=== PATIENT | female | born 1990 | race Caucasian/White ===

== ENCOUNTER 2017-06-13 13:34 | Emergency (ER) | payer MEDICARE, MEDICAID ==
[~2017-06-13] VITALS: Ht 162.6 cm; Wt 118.0 kg
[~2017-06-13 13:34] MED LIST: CYCL-259 PO; GABA300T3 PO; GABA600T14 PO; LEVO1TAB5 PO; LEVO50TA5 PO; MELA10CA PO; METF500T4 PO; METO-99 PO; NAPR500T PO; OXYC1TAB8 PO; ZIPR80CA2 PO
[2017-06-13 13:40] VITALS: BP 142/67
[2017-06-13] MEDS ORDERED: OXYC1TAB9 PO (14:10)
[2017-06-13] MEDS ORDERED: SITA50TA PO (14:10)
[2017-06-13] MEDS ORDERED: ZIPR40CA2 PO (14:10)
[2017-06-13] MEDS ORDERED: FENT1PAT9 TD (14:10)
== END 2017-06-13 15:31 | disposition home or self-care (01) ==
LOC: ED 15:25
DX: S93.621A Sprain of tarsometatarsal ligament of right foot, initial encounter (principal); I10 Essential (primary) hypertension; E11.9 Type 2 diabetes mellitus without complications; Z88.1 Allergy status to other antibiotic agents; Z88.2 Allergy status to sulfonamides; Z88.8 Allergy status to other drugs, medicaments and biological substances; W18.30XA Fall on same level, unspecified, initial encounter; Y93.89 Activity, other specified; Y92.009 Unspecified place in unspecified non-institutional (private) residence as the place of occurrence of the external cause; Y99.9 Unspecified external cause status
CPT/HCPCS: 29515; 99284

== ENCOUNTER 2017-06-30 21:21 | Emergency (ER) | payer MEDICARE, MEDICAID ==
[~2017-06-30] VITALS: Ht 160 cm; Wt 122.2 kg
[~2017-06-30 21:21] MED LIST changes: +FENT1PAT9 TD; +OXYC1TAB9 PO; +SITA50TA PO; +ZIPR40CA2 PO
[2017-06-30 21:47] LABS: HEMATOCRIT 41.9 % (34.6-47.8); WHITE BLOOD COUNT 6.9 x10^3/uL (3.4-10)
[2017-06-30 22:00] LABS: ASPARTATE AMINO TRANSFERASE 18 U/L (15-37); BLOOD UREA NITROGEN 15 mg/dL (7-18)
[2017-06-30 22:08] LABS: ACETAMINOPHEN < 2 mcg/mL (10-30)
[2017-06-30 22:34] LABS: DAU SCREEN DISCLAIMER
[2017-06-30] MEDS ORDERED: OMNIPAQUE 350 MG/ML, 100ML BOTTLE ONE (23:25)
[2017-07-01] MEDS ORDERED: MORPHINE SULFATE 4 MG/ML, 1ML IVPush PRN
[2017-07-01] MEDS ORDERED: ONDANSETRON 2MG/ML, 2ML IVPush ONE
[2017-07-01] MEDS ORDERED: MORPHINE SULFATE 4 MG/ML, 1ML ONE (00:11)
[2017-07-01] MEDS ORDERED: ONDANSETRON 2MG/ML, 2ML ONE (00:11)
[2017-07-01 00:16] VITALS: BP 137/75
== END 2017-07-01 00:51 | disposition home or self-care (01) ==
LOC: ED 22:05
DX: G43.409 Hemiplegic migraine, not intractable, without status migrainosus (principal); I10 Essential (primary) hypertension; E11.9 Type 2 diabetes mellitus without complications; Z88.0 Allergy status to penicillin; Z88.2 Allergy status to sulfonamides; Z88.1 Allergy status to other antibiotic agents; Z88.8 Allergy status to other drugs, medicaments and biological substances
CPT/HCPCS: 36415; 70450; 70496; 70498; 71010; 80047; 80053; 80307; 80329; 81003; 82962; 83605; 84703; 85025; 85610; 85730; 93005; 96374; 96375; 99291; J2405; Q9967; G0480

== ENCOUNTER 2017-07-09 20:32 | Emergency (ER) | payer MEDICARE, MEDICAID ==
[~2017-07-09] VITALS: Ht 160 cm; Wt 117.0 kg
[2017-07-09 22:21] LABS: HEMATOCRIT 38.5 % (34.6-47.8); HEMOGLOBIN 13.1 g/dL (11.7-16.4); WHITE BLOOD COUNT 6.2 x10^3/uL (3.4-10)
[2017-07-09] MEDS ORDERED: SODIUM CHLORIDE 0.9% 1,000ML IVBOLUS ONE (22:30)
[2017-07-09 22:32] LABS: ASPARTATE AMINO TRANSFERASE 22 U/L (15-37); BLOOD UREA NITROGEN 10 mg/dL (7-18)
[2017-07-09] MEDS ORDERED: ONDANSETRON ODT 4 MG PO ONE (23:00)
[2017-07-09] MEDS ORDERED: MORPHINE SULFATE 4 MG/ML, 1ML IVPush ONE (23:00)
[2017-07-09] MEDS ORDERED: ONDANSETRON 2MG/ML, 2ML ONE (23:23)
[2017-07-09] MEDS ORDERED: MORPHINE SULFATE 4 MG/ML, 1ML ONE (23:23)
[2017-07-10] MEDS ORDERED: ONDANSETRON 2MG/ML, 2ML IVPush ONE
[2017-07-10] MEDS ORDERED: KETOROLAC 30 MG/1 ML IVPush ONE
[2017-07-10] MEDS ORDERED: KETOROLAC 30 MG/1 ML ONE (00:15)
[2017-07-10 00:21] VITALS: BP 137/62
[2017-07-10] MEDS ORDERED: OMEP20TA62 PO (11:47)
[2017-07-10] MEDS ORDERED: FURO40TA6 PO (11:47)
[2017-07-10] MEDS ORDERED: FLUO10CA13 PO (11:47)
[2017-07-10] MEDS ORDERED: IVAB5TAB PO (11:47)
[2017-07-10] MEDS ORDERED: BACL20TA PO (11:47)
[2017-07-10] MEDS ORDERED: PROM25SU34 RC (11:47)
[2017-07-10] MEDS ORDERED: ASPI-496 PO (11:47)
[2017-07-10] MEDS ORDERED: SODI325T PO (11:47)
== END 2017-07-10 00:52 | disposition home or self-care (01) ==
LOC: ED 23:49
DX: G43.419 Hemiplegic migraine, intractable, without status migrainosus (principal); I10 Essential (primary) hypertension; E11.9 Type 2 diabetes mellitus without complications
CPT/HCPCS: 36415; 70450; 80053; 84703; 85025; 93005; 96361; 96374; 96375; 99285; J1885; J2405; J7030

== ENCOUNTER 2017-07-10 11:23 | Emergency (ER) | payer MEDICARE, MEDICAID ==
[~2017-07-10] VITALS: Ht 160 cm; Wt 80.0 kg
[2017-07-10] MEDS ORDERED: SODI325T PO (11:47)
[2017-07-10] MEDS ORDERED: IVAB5TAB PO (11:47)
[2017-07-10] MEDS ORDERED: OMEP20TA62 PO (11:47)
[2017-07-10] MEDS ORDERED: FURO40TA6 PO (11:47)
[2017-07-10] MEDS ORDERED: PROM25SU34 RC (11:47)
[2017-07-10] MEDS ORDERED: FLUO10CA13 PO (11:47)
[2017-07-10] MEDS ORDERED: BACL20TA PO (11:47)
[2017-07-10] MEDS ORDERED: ASPI-496 PO (11:47)
[2017-07-10] MEDS ORDERED: DIPHENHYDRAMINE 50 MG/ML, 1ML IVPush ONE (12:00)
[2017-07-10] MEDS ORDERED: SODIUM CHLORIDE 0.9% 1,000ML IVBOLUS ONE (12:00)
[2017-07-10] MEDS ORDERED: PROCHLORPERAZINE 5 MG/ML, 2ML IVPush ONE (12:00)
[2017-07-10] MEDS ORDERED: SODIUM CHLORIDE FLUSH 10ML SYR IVF ONE (12:00)
[2017-07-10] MEDS ORDERED: PROCHLORPERAZINE 5 MG/ML, 2ML ONE (12:32)
[2017-07-10] MEDS ORDERED: DIPHENHYDRAMINE 50 MG/ML, 1ML ONE (12:32)
[2017-07-10] MEDS ORDERED: KETOROLAC 30 MG/1 ML IVPush ONE (13:00)
[2017-07-10] MEDS ORDERED: KETOROLAC 30 MG/1 ML ONE (13:28)
[2017-07-10 14:20] VITALS: BP 123/69
== END 2017-07-10 15:00 | disposition home or self-care (01) ==
LOC: ED 13:07
DX: G43.019 Migraine without aura, intractable, without status migrainosus (principal); I10 Essential (primary) hypertension; E11.9 Type 2 diabetes mellitus without complications
CPT/HCPCS: 96361; 96374; 96375; 99285; J0780; J1200; J1885; J7030

== ENCOUNTER 2017-07-18 17:55 | Inpatient (IN) | payer MEDICARE, MEDICAID ==
[~2017-07-18] VITALS: Ht 160 cm; Wt 123.0 kg
[~2017-07-18 17:55] MED LIST changes: +ASPI-496 PO; +BACL20TA PO; +FLUO10CA13 PO; +FURO40TA6 PO; +IVAB5TAB PO; +OMEP20TA62 PO; +PROM25SU34 RC; +SODI325T PO
[2017-07-18] MEDS ORDERED: DICL100G19 EXT (18:42)
[2017-07-18] MEDS ORDERED: SUMA20SP2 NAS (18:44)
[2017-07-18] MEDS ORDERED: MORPHINE SULFATE 4 MG/ML, 1ML IVPush PRN (19:00)
[2017-07-18] MEDS ORDERED: SODIUM CHLORIDE FLUSH 10ML SYR IVF ONE (19:00)
[2017-07-18] MEDS ORDERED: SODIUM CHLORIDE 0.9% 1,000ML IVBOLUS ONE (19:00)
[2017-07-18 19:13] LABS: HEMATOCRIT 39.3 % (34.6-47.8); HEMOGLOBIN 13.3 g/dL (11.7-16.4); WHITE BLOOD COUNT 7.6 x10^3/uL (3.4-10)
[2017-07-18 19:23] LABS: BLOOD UREA NITROGEN 15 mg/dL (7-18)
[2017-07-18] MEDS ORDERED: MORPHINE SULFATE 4 MG/ML, 1ML ONE (20:22)
[2017-07-18] MEDS ORDERED: BISACODYL 10 MG SUPP PR PRN (23:00)
[2017-07-18] MEDS ORDERED: DOCUSATE 100 MG CAPSULE PO PRN (23:00)
[2017-07-18] MEDS ORDERED: DEXTROSE 50%, 50ML SYRINGE IVPush PRN (23:00)
[2017-07-18] MEDS ORDERED: POLYETHYLENE GLYCOL 17 GM PACKET PO PRN (23:00)
[2017-07-18] MEDS ORDERED: FENTANYL 25 MCG PATCH TD SCH (23:00)
[2017-07-18] MEDS ORDERED: ACETAMINOPHEN 325 MG TABLET PO PRN (23:00)
[2017-07-18] MEDS ORDERED: methylPREDNISolone SOD SUCC 125 MG/2 ML IVPush SCH (23:00)
[2017-07-18] MEDS ORDERED: DEXTROSE 4 GM TAB.CHEW PO PRN (23:00)
[2017-07-18] MEDS ORDERED: GLUCAGON 1 MG IM PRN (23:00)
[2017-07-18] MEDS ORDERED: FENTANYL REMOVE PATCH NOTE XX SCH (23:00)
[2017-07-18] MEDS: ENOXAPARIN 40 MG/0.4 ML SQ SCH (23:17)
[2017-07-18 23:44] VITALS: BP 108/70
[2017-07-18] MEDS: OXYcodone/APAP 10/325MG TABLET PO PRN (23:49)
[2017-07-19] MEDS: methylPREDNISolone SOD SUCC 125 MG/2 ML IVPush SCH ×5 (02:27→22:31)
[2017-07-19] MEDS ORDERED: DICL100G19 TP (02:47)
[2017-07-19] MEDS ORDERED: NEOM10DR37 OTIC (02:51)
[2017-07-19 02:57] VITALS: BP 114/75
[2017-07-19 04:51] LABS: HEMATOCRIT 40.6 % (34.6-47.8); HEMOGLOBIN 13.8 g/dL (11.7-16.4); WHITE BLOOD COUNT 5.8 x10^3/uL (3.4-10)
[2017-07-19 04:55] LABS: BLOOD UREA NITROGEN 12 mg/dL (7-18)
[2017-07-19 05:08] LABS: ASPARTATE AMINO TRANSFERASE 16 U/L (15-37)
[2017-07-19] MEDS: OXYcodone/APAP 10/325MG TABLET PO PRN ×3 (06:25→18:12)
[2017-07-19 06:41] VITALS: BP 111/70
[2017-07-19] MEDS ORDERED: SODIUM CHLORIDE FLUSH 10ML SYR IVF SCH (09:00)
[2017-07-19] MEDS: IVABRADINE HCL 5 MG HOMEMEDPO SCH (09:00)
[2017-07-19] MEDS: ASPIRIN 81 MG TABLET EC PO SCH (09:26)
[2017-07-19] MEDS: INSULIN ASPART 100 UNITS/ML, PEN SQ-INSULIN SCH ×4 (09:26→22:32)
[2017-07-19] MEDS: ZIPRASIDONE 40MG CAPSULE PO SCH ×2 (09:27→22:21)
[2017-07-19] MEDS: BACLOFEN 10 MG TABLET PO SCH ×2 (09:27→22:20)
[2017-07-19] MEDS: GABAPENTIN 300 MG CAPSULE PO SCH ×3 (09:27→22:20)
[2017-07-19] MEDS: FLUOXETINE 10 MG CAP PO SCH (09:27)
[2017-07-19] MEDS: SITAGLIPTIN 50MG TABLET PO SCH (09:27)
[2017-07-19] MEDS: OMEPRAZOLE 20 MG CAPSULE.DR PO SCH ×2 (09:28→22:20)
[2017-07-19] MEDS: SODIUM BICARBONATE 650 MG TABLET PO SCH ×3 (09:28→22:20)
[2017-07-19] MEDS: DICLOFENAC TP PRN ×2 (11:34→18:13)
[2017-07-19] MEDS: PROMETHAZINE 25 MG SUPP PR PRN (12:31)
[2017-07-19 13:17] VITALS: BP 114/67
[2017-07-19] MEDS: NEO/POLY/HC EAR SUSP 10ML EACH EAR SCH ×2 (15:43→22:19)
[2017-07-19] MEDS ORDERED: GLUCAGON 1 MG IM PRN (20:00)
[2017-07-19] MEDS ORDERED: BISACODYL 10 MG SUPP PR PRN (20:00)
[2017-07-19] MEDS ORDERED: POLYETHYLENE GLYCOL 17 GM PACKET PO PRN (20:00)
[2017-07-19] MEDS ORDERED: ACETAMINOPHEN 325 MG TABLET PO PRN (20:00)
[2017-07-19] MEDS ORDERED: DOCUSATE 100 MG CAPSULE PO PRN (20:00)
[2017-07-19] MEDS ORDERED: DEXTROSE 4 GM TAB.CHEW PO PRN (20:00)
[2017-07-19] MEDS: SODIUM CHLORIDE FLUSH 10ML SYR IVF SCH (21:00)
[2017-07-19 22:17] VITALS: BP 106/49
[2017-07-19] MEDS: MELATONIN 5 MG TABLET PO SCH (22:20)
[2017-07-19] MEDS: ENOXAPARIN 40 MG/0.4 ML SQ SCH (22:21)
[2017-07-20] MEDS: OXYcodone/APAP 10/325MG TABLET PO PRN ×4 (00:50→21:53)
[2017-07-20 00:54] VITALS: BP 105/49
[2017-07-20] MEDS: DICLOFENAC TP PRN ×3 (03:10→22:07)
[2017-07-20] MEDS: PROMETHAZINE 25 MG SUPP PR PRN (03:10)
[2017-07-20] MEDS: methylPREDNISolone SOD SUCC 125 MG/2 ML IVPush SCH ×4 (05:46→23:15)
[2017-07-20] MEDS: SODIUM CHLORIDE FLUSH 10ML SYR IVF SCH ×2 (08:04→21:00)
[2017-07-20] MEDS: INSULIN ASPART 100 UNITS/ML, PEN SQ-INSULIN SCH ×4 (08:04→22:07)
[2017-07-20] MEDS: NEO/POLY/HC EAR SUSP 10ML EACH EAR SCH ×3 (08:04→21:55)
[2017-07-20] MEDS: IVABRADINE HCL 5 MG HOMEMEDPO SCH (08:04)
[2017-07-20] MEDS: ASPIRIN 81 MG TABLET EC PO SCH (08:05)
[2017-07-20] MEDS: ZIPRASIDONE 40MG CAPSULE PO SCH ×2 (08:05→21:54)
[2017-07-20] MEDS: FLUOXETINE 10 MG CAP PO SCH (08:05)
[2017-07-20] MEDS: GABAPENTIN 300 MG CAPSULE PO SCH ×3 (08:06→21:54)
[2017-07-20] MEDS: BACLOFEN 10 MG TABLET PO SCH ×2 (08:06→21:53)
[2017-07-20] MEDS: OMEPRAZOLE 20 MG CAPSULE.DR PO SCH ×2 (08:06→21:53)
[2017-07-20] MEDS: SITAGLIPTIN 50MG TABLET PO SCH (08:06)
[2017-07-20] MEDS: SODIUM BICARBONATE 650 MG TABLET PO SCH ×3 (08:06→21:54)
[2017-07-20 08:10] VITALS: BP 105/67
[2017-07-20 13:52] VITALS: BP 108/65
[2017-07-20 19:42] VITALS: BP 117/66
[2017-07-20] MEDS: MELATONIN 5 MG TABLET PO SCH (21:53)
[2017-07-20] MEDS ORDERED: IVABRADINE HCL 5 MG HOMEMEDPO SCH (21:57)
[2017-07-20] MEDS: ENOXAPARIN 40 MG/0.4 ML SQ SCH (23:15)
[2017-07-21 02:00] VITALS: BP 123/72
[2017-07-21] MEDS: OXYcodone/APAP 10/325MG TABLET PO PRN (03:36)
[2017-07-21] MEDS: DICLOFENAC TP PRN (03:37)
[2017-07-21] MEDS: methylPREDNISolone SOD SUCC 125 MG/2 ML IVPush SCH (06:01)
[2017-07-21 07:19] VITALS: BP 122/77
[2017-07-21] MEDS: INSULIN ASPART 100 UNITS/ML, PEN SQ-INSULIN SCH (07:33)
[2017-07-21] MEDS: ASPIRIN 81 MG TABLET EC PO SCH (08:44)
[2017-07-21] MEDS: SODIUM CHLORIDE FLUSH 10ML SYR IVF SCH (08:44)
[2017-07-21] MEDS: NEO/POLY/HC EAR SUSP 10ML EACH EAR SCH (08:44)
[2017-07-21] MEDS: GABAPENTIN 300 MG CAPSULE PO SCH (08:45)
[2017-07-21] MEDS: BACLOFEN 10 MG TABLET PO SCH (08:45)
[2017-07-21] MEDS: FLUOXETINE 10 MG CAP PO SCH (08:45)
[2017-07-21] MEDS: ZIPRASIDONE 40MG CAPSULE PO SCH (08:45)
[2017-07-21] MEDS: SITAGLIPTIN 50MG TABLET PO SCH (08:45)
[2017-07-21] MEDS: OMEPRAZOLE 20 MG CAPSULE.DR PO SCH (08:45)
[2017-07-21] MEDS: SODIUM BICARBONATE 650 MG TABLET PO SCH (08:46)
[2017-07-21 08:54] VITALS: BP 128/83
[2017-07-21] MEDS ORDERED: IVABRADINE HCL 5 MG HOMEMEDPO SCH (09:00)
[2017-07-21] MEDS ORDERED: PRED10TA PO (09:48)
== END 2017-07-21 10:03 | disposition home or self-care (01) | DRG 123 ==
LOC: ED 19:11 → EDIP 19:40 → 4NOR 21:23 → DCLOUNGE 07-21 09:25
PROVIDERS: ADMIT Internal Medicine; ATTEND Internal Medicine
DX: H46.9 Unspecified optic neuritis (principal); E11.40 Type 2 diabetes mellitus with diabetic neuropathy, unspecified; E11.65 Type 2 diabetes mellitus with hyperglycemia; E66.01 Morbid (severe) obesity due to excess calories; F11.20 Opioid dependence, uncomplicated; H02.843 Edema of right eye, unspecified eyelid; H54.61 Unqualified visual loss, right eye, normal vision left eye; H57.8 Other specified disorders of eye and adnexa; I10 Essential (primary) hypertension; G89.29 Other chronic pain; G47.00 Insomnia, unspecified; F99 Mental disorder, not otherwise specified; M35.9 Systemic involvement of connective tissue, unspecified; G35 Multiple sclerosis; G43.409 Hemiplegic migraine, not intractable, without status migrainosus
CPT/HCPCS: 36415; 80048; 80053; 82040; 82962; 84443; 85025; 86480; 96365; 96375; J1650; J1815; J2930; J7030

== ENCOUNTER 2017-09-24 20:44 | Emergency (ER) | payer MEDICARE, MEDICAID ==
[~2017-09-24] VITALS: Ht 165.1 cm; Wt 125.0 kg
[~2017-09-24 20:44] MED LIST changes: +DICL100G19 EXT; +DICL100G19 TP; +NEOM10DR37 OTIC; +PRED10TA PO; +SUMA20SP2 NAS
[2017-09-24] MEDS ORDERED: ALBU1.25 NEB (21:13)
[2017-09-24] MEDS ORDERED: LACT10SO28 PO (21:13)
[2017-09-24] MEDS ORDERED: NITR0.4T28 SL (21:13)
[2017-09-24] MEDS ORDERED: MEDICAL MARJUANA INH (21:13)
[2017-09-24] MEDS ORDERED: NITR100C56 PO (21:13)
[2017-09-24] MEDS ORDERED: SODIUM CHLORIDE 0.9% 1,000ML IVBOLUS ONE (21:30)
[2017-09-24 21:51] LABS: HEMATOCRIT 41.4 % (34.6-47.8); HEMOGLOBIN 14.1 g/dL (11.7-16.4); WHITE BLOOD COUNT 7.1 x10^3/uL (3.4-10)
[2017-09-24 22:02] LABS: ASPARTATE AMINO TRANSFERASE 18 U/L (15-37); BLOOD UREA NITROGEN 11 mg/dL (7-18)
[2017-09-24 22:13] LABS: HCG UR LOT HCG7030192
[2017-09-24 22:24] LABS: HCG UR OBC PASS
[2017-09-24 23:56] VITALS: BP 127/71
== END 2017-09-25 00:38 | disposition home or self-care (01) ==
LOC: ED 23:22
DX: R53.1 Weakness (principal); E11.9 Type 2 diabetes mellitus without complications; I10 Essential (primary) hypertension; Z88.2 Allergy status to sulfonamides; Z88.8 Allergy status to other drugs, medicaments and biological substances; Z88.1 Allergy status to other antibiotic agents
CPT/HCPCS: 36415; 71010; 80053; 81001; 81025; 84443; 85025; 87086; 99285; J7512

== ENCOUNTER 2017-10-06 17:04 | Emergency (ER) | payer MEDICARE, MEDICAID ==
[~2017-10-06] VITALS: Ht 165.1 cm; Wt 126.0 kg
[~2017-10-06 17:04] MED LIST changes: +ALBU1.25 NEB; +LACT10SO28 PO; +MEDICAL MARJUANA INH; +NITR0.4T28 SL; +NITR100C56 PO
[2017-10-06] MEDS ORDERED: SUMA20SP2 INH (17:58)
[2017-10-06] MEDS ORDERED: FLUT1DIS5 IH (17:58)
[2017-10-06] MEDS ORDERED: MIRA25TA PO (17:58)
[2017-10-06] MEDS ORDERED: LEVO75TA5 PO (17:58)
[2017-10-06] MEDS ORDERED: LORA10TA3 PO (17:58)
[2017-10-06] MEDS ORDERED: CHLO118L PO (17:58)
[2017-10-06] MEDS ORDERED: SITA100T PO (17:58)
[2017-10-06] MEDS ORDERED: GABA600T14 PO (17:58)
[2017-10-06] MEDS ORDERED: ACID1TAB3 PO (17:58)
[2017-10-06] MEDS ORDERED: FURO-92 PO (17:58)
[2017-10-06] MEDS ORDERED: ONDA4TAB10 PO (17:58)
[2017-10-06] MEDS ORDERED: TRAZ50TA18 PO (17:58)
[2017-10-06] MEDS ORDERED: SODIUM CHLORIDE 0.9% 1,000ML IVBOLUS ONE (18:30)
[2017-10-06] MEDS ORDERED: SODIUM CHLORIDE FLUSH 10ML SYR IVF ONE (18:30)
[2017-10-06] MEDS ORDERED: ACETAMINOPHEN 325 MG TABLET PO ONE (18:30)
[2017-10-06] MEDS ORDERED: CEFTRIAXONE PMX 2GM/50ML 50 ML IV ONE (18:30)
[2017-10-06 18:34] LABS: HEMATOCRIT 42.1 % (34.6-47.8); HEMOGLOBIN 14.3 g/dL (11.7-16.4); WHITE BLOOD COUNT 9.4 x10^3/uL (3.4-10)
[2017-10-06 18:45] LABS: ASPARTATE AMINO TRANSFERASE 21 U/L (15-37); BLOOD UREA NITROGEN 11 mg/dL (7-18)
[2017-10-06] MEDS ORDERED: ACETAMINOPHEN 325 MG TABLET ONE (19:06)
[2017-10-06] MEDS ORDERED: CEFTRIAXONE PMX 1GM/50ML 50 ML ONE (19:06)
[2017-10-06] MEDS ORDERED: CEFTRIAXONE PMX 2GM/50ML 50 ML ONE (19:21)
[2017-10-06 20:02] VITALS: BP 146/76
== END 2017-10-06 20:36 | disposition home or self-care (01) ==
LOC: ED 17:40
DX: L03.313 Cellulitis of chest wall (principal); G43.909 Migraine, unspecified, not intractable, without status migrainosus; E11.9 Type 2 diabetes mellitus without complications; I10 Essential (primary) hypertension; J45.909 Unspecified asthma, uncomplicated; F12.10 Cannabis abuse, uncomplicated
CPT/HCPCS: 36415; 71010; 80053; 81001; 83605; 84145; 85025; 87040; 87086; 93005; 96365; 96366; 99285; J0696; J7030

== ENCOUNTER 2017-10-19 21:24 | Emergency (ER) | payer MEDICARE, MEDICAID ==
[~2017-10-19] VITALS: Ht 172.7 cm; Wt 102.0 kg
[~2017-10-19 21:24] MED LIST changes: +ACID1TAB3 PO; +CHLO118L PO; +FLUT1DIS5 IH; +FURO-92 PO; +LEVO75TA5 PO; +LORA10TA3 PO; +MIRA25TA PO; +ONDA4TAB10 PO; +SITA100T PO; +SUMA20SP2 INH; +TRAZ50TA18 PO
[2017-10-19 22:47] LABS: HEMATOCRIT 41.2 % (34.6-47.8); WHITE BLOOD COUNT 7.4 x10^3/uL (3.4-10)
[2017-10-19 22:59] LABS: BLOOD UREA NITROGEN 10 mg/dL (7-18)
[2017-10-20 00:04] VITALS: BP 133/84
== END 2017-10-20 00:07 | disposition home or self-care (01) ==
LOC: ED 23:14
DX: S80.02XA Contusion of left knee, initial encounter (principal); S09.90XA Unspecified injury of head, initial encounter; R55 Syncope and collapse; E11.9 Type 2 diabetes mellitus without complications; X58.XXXA Exposure to other specified factors, initial encounter; Y93.89 Activity, other specified; Y92.89 Other specified places as the place of occurrence of the external cause; Y99.9 Unspecified external cause status
CPT/HCPCS: 36415; 70450; 71010; 72125; 80048; 82040; 84703; 85025; 93005; 99285

== ENCOUNTER 2017-11-03 17:55 | Emergency (ER) | payer MEDICARE, MEDICAID ==
[~2017-11-03] VITALS: Ht 165.1 cm; Wt 125.5 kg
[~2017-11-03 17:55] MED LIST changes: +NAPR-856 PO; -NAPR500T PO
[2017-11-03] MEDS ORDERED: SODIUM CHLORIDE FLUSH 10ML SYR IVF ONE (18:30)
[2017-11-03] MEDS ORDERED: SODIUM CHLORIDE 0.9% 1,000ML IVBOLUS ONE (18:30)
[2017-11-03 18:45] LABS: BASOPHILS # (AUTO) 0.03 x10^3/uL (0-0.1); BASOPHILS % (AUTO) 0 % (0-1); EOSINOPHILS # (AUTO) 0.13 x10^3/uL (0-0.4); EOSINOPHILS % (AUTO) 2 % (1-7); LYMPHOCYTES # (AUTO) 2.19 x10^3/uL (1-3.4); LYMPHOCYTES % (AUTO) 33 % (22-44); MD NO; MEAN CORPUSCULAR HEMOGLOBIN 30.3 pg (27.0-34.8); MEAN CORPUSCULAR HGB CONC 33.8 g/dL (32.4-35.8); MEAN CORPUSCULAR VOLUME 89.8 fL (80-100); MEAN PLATELET VOLUME 9.9 fL (7.4-10.4); MONOCYTES # (AUTO) 0.36 x10^3/uL (0.2-0.8); MONOCYTES % (AUTO) 6 % (2-9); NEUTROPHILS # (AUTO) 3.84 x10^3/uL (1.8-6.8); NEUTROPHILS % (AUTO) 59 % (42-75); PLATELET COUNT 217 x10^3/uL (130-400); RED BLOOD COUNT 4.82 x10^6/uL (3.82-5.3); RED CELL DISTRIBUTION WIDTH 14.2 % (9.6-15.2)
[2017-11-03 18:57] LABS: ALANINE AMINOTRANSFERASE 62 U/L (12-78); ALBUMIN 3.9 g/dL (3.4-5.0); ANION GAP 9 mmol/L (5-15); CALCIUM 9.6 mg/dL (8.5-10.1); CHLORIDE 108 mmol/L (98-107); CREATININE 0.82 mg/dL (0.55-1.02)
[2017-11-03 19:02] LABS: ALKALINE PHOSPHATASE 68 U/L (45-117); BILIRUBIN,TOTAL 0.4 mg/dL (0.2-1.0); TOTAL PROTEIN 7.4 g/dL (6.4-8.2)
[2017-11-03] MEDS ORDERED: ONDANSETRON 2MG/ML, 2ML ONE (19:15)
[2017-11-03] MEDS ORDERED: PROMETHAZINE 25 MG/ML, 1ML ONE (19:15)
[2017-11-03] MEDS ORDERED: PROMETHAZINE 25 MG/ML, 1ML IM ONE (19:30)
[2017-11-03] MEDS ORDERED: ONDANSETRON 2MG/ML, 2ML IVPush ONE (19:30)
[2017-11-03] MEDS ORDERED: ONDANSETRON ODT 4 MG ONE (19:47)
[2017-11-03] MEDS ORDERED: ONDANSETRON ODT 4 MG PO ONE (20:00)
[2017-11-03 20:04] LABS: CULTURE INDICATED? YES; MICROSCOPIC INDICATED
[2017-11-03 20:56] VITALS: BP 135/63
== END 2017-11-03 20:58 | disposition home or self-care (01) ==
LOC: ED 19:08
DX: R10.84 Generalized abdominal pain (principal); R19.7 Diarrhea, unspecified; R11.0 Nausea; E11.9 Type 2 diabetes mellitus without complications; I10 Essential (primary) hypertension; G43.909 Migraine, unspecified, not intractable, without status migrainosus; E66.9 Obesity, unspecified
CPT/HCPCS: 36415; 80053; 81001; 83690; 84703; 85025; 87086; 96372; 99284; J2550; Q0162

== ENCOUNTER 2018-02-04 17:13 | Emergency (ER) | payer MEDICARE, MEDICAID ==
[~2018-02-04] VITALS: Ht 165.1 cm; Wt 123.6 kg
[2018-02-04] MEDS ORDERED: SODIUM CHLORIDE 0.9% 1,000ML IVBOLUS ONE (18:00)
[2018-02-04] MEDS ORDERED: SODIUM CHLORIDE FLUSH 10ML SYR IVF ONE (18:00)
[2018-02-04] MEDS ORDERED: METOCLOPRAMIDE 5 MG/ML, 2ML IVPush ONE (18:00)
[2018-02-04] MEDS ORDERED: METOCLOPRAMIDE 5 MG/ML, 2ML ONE (18:15)
[2018-02-04] MEDS ORDERED: DIPHENHYDRAMINE 50 MG/ML, 1ML ONE (18:15)
[2018-02-04 18:27] LABS: ALANINE AMINOTRANSFERASE 107 U/L (12-78); ALBUMIN 3.7 g/dL (3.4-5.0); ANION GAP 12 mmol/L (5-15); CALCIUM 8.9 mg/dL (8.5-10.1); CHLORIDE 105 mmol/L (98-107); CREATININE 0.85 mg/dL (0.55-1.02)
[2018-02-04 18:30] LABS: BASOPHILS # (AUTO) 0.05 x10^3/uL (0-0.1); BASOPHILS % (AUTO) 1 % (0-1); EOSINOPHILS # (AUTO) 0.17 x10^3/uL (0-0.4); EOSINOPHILS % (AUTO) 3 % (1-7); LYMPHOCYTES # (AUTO) 2.31 x10^3/uL (1-3.4); LYMPHOCYTES % (AUTO) 36 % (22-44); MD NO; MEAN CORPUSCULAR HEMOGLOBIN 30.4 pg (27.0-34.8); MEAN CORPUSCULAR HGB CONC 34.1 g/dL (32.4-35.8); MEAN CORPUSCULAR VOLUME 89.2 fL (80-100); MONOCYTES # (AUTO) 0.48 x10^3/uL (0.2-0.8); MONOCYTES % (AUTO) 7 % (2-9); NEUTROPHILS % (AUTO) 54 % (42-75); PLATELET COUNT 215 x10^3/uL (130-400); RED BLOOD COUNT 4.71 x10^6/uL (3.82-5.3); RED CELL DISTRIBUTION WIDTH 14.1 % (9.6-15.2)
[2018-02-04 18:31] LABS: MICROSCOPIC INDICATED
[2018-02-04 18:32] LABS: ALKALINE PHOSPHATASE 72 U/L (45-117); BILIRUBIN,TOTAL 0.4 mg/dL (0.2-1.0)
[2018-02-04 18:32] LABS: CULTURE INDICATED? YES
[2018-02-04] MEDS ORDERED: DIPHENHYDRAMINE 50 MG/ML, 1ML IVPush ONE (19:30)
[2018-02-04 19:31] VITALS: BP 125/59
== END 2018-02-04 20:17 | disposition home or self-care (01) ==
LOC: ED 20:11
DX: R10.84 Generalized abdominal pain (principal); R11.2 Nausea with vomiting, unspecified; R19.7 Diarrhea, unspecified; E11.9 Type 2 diabetes mellitus without complications; I10 Essential (primary) hypertension; G43.909 Migraine, unspecified, not intractable, without status migrainosus; Z88.1 Allergy status to other antibiotic agents; Z88.2 Allergy status to sulfonamides; Z88.8 Allergy status to other drugs, medicaments and biological substances; Z88.5 Allergy status to narcotic agent
CPT/HCPCS: 36415; 80053; 81001; 83690; 84703; 85025; 86704; 86706; 86708; 86803; 87086; 87340; 93005; 96361; 96374; 96375; 99285; J1200; J2765; J7030

== ENCOUNTER 2018-02-17 14:00 | Emergency (ER) | payer MEDICARE, MEDICAID ==
[~2018-02-17] VITALS: Ht 165.1 cm; Wt 78.0 kg
[2018-02-17] MEDS ORDERED: KETOROLAC 30 MG/1 ML ONE (14:44)
[2018-02-17] MEDS ORDERED: KETOROLAC 30 MG/1 ML IM ONE (15:00)
[2018-02-17 15:04] LABS: BASOPHILS # (AUTO) 0.04 x10^3/uL (0-0.1); BASOPHILS % (AUTO) 1 % (0-1); EOSINOPHILS # (AUTO) 0.17 x10^3/uL (0-0.4); EOSINOPHILS % (AUTO) 3 % (1-7); LYMPHOCYTES # (AUTO) 1.95 x10^3/uL (1-3.4); LYMPHOCYTES % (AUTO) 28 % (22-44); MD NO; MEAN CORPUSCULAR HEMOGLOBIN 29.8 pg (27.0-34.8); MEAN CORPUSCULAR HGB CONC 33.7 g/dL (32.4-35.8); MEAN CORPUSCULAR VOLUME 88.7 fL (80-100); MEAN PLATELET VOLUME 10.4 fL (7.4-10.4); MONOCYTES # (AUTO) 0.43 x10^3/uL (0.2-0.8); MONOCYTES % (AUTO) 6 % (2-9); NEUTROPHILS # (AUTO) 4.39 x10^3/uL (1.8-6.8); NEUTROPHILS % (AUTO) 63 % (42-75); PLATELET COUNT 192 x10^3/uL (130-400); RED BLOOD COUNT 4.95 x10^6/uL (3.82-5.3); RED CELL DISTRIBUTION WIDTH 13.8 % (9.6-15.2)
[2018-02-17 15:06] LABS: ANION GAP 11 mmol/L (5-15); CALCIUM 9.6 mg/dL (8.5-10.1); CHLORIDE 103 mmol/L (98-107)
[2018-02-17] MEDS ORDERED: TRAZ100T15 PO (15:10)
[2018-02-17] MEDS ORDERED: ALBU90AE INH (15:10)
[2018-02-17] MEDS ORDERED: victoza PO (15:10)
[2018-02-17] MEDS ORDERED: FURO-92 PO (15:10)
[2018-02-17] MEDS ORDERED: BUSP5TAB2 PO (15:10)
[2018-02-17 15:11] LABS: CREATININE 0.84 mg/dL (0.55-1.02); TROPONIN I < 0.015 ng/mL (0.000-0.045)
[2018-02-17 15:45] VITALS: BP 116/65
== END 2018-02-17 16:08 | disposition home or self-care (01) ==
LOC: ED 15:00
DX: R07.89 Other chest pain (principal); E11.9 Type 2 diabetes mellitus without complications; I10 Essential (primary) hypertension; I48.91 Unspecified atrial fibrillation; Z79.82 Long term (current) use of aspirin; G43.909 Migraine, unspecified, not intractable, without status migrainosus
CPT/HCPCS: 36415; 71045; 80048; 82040; 84484; 85025; 85379; 93005; 96372; 99285; J1885

== ENCOUNTER 2018-08-22 14:58 | Emergency (ER) | payer MEDICARE, MEDICAID ==
[~2018-08-22] VITALS: Ht 175.3 cm; Wt 122.7 kg
[~2018-08-22 14:58] MED LIST changes: +ALBU90AE INH; +BUSP5TAB2 PO; +METF500T17 PO; -METF500T4 PO; +OXYC-432 PO; -OXYC1TAB9 PO; +TRAZ-136 PO; +TRAZ-137 PO; -TRAZ50TA18 PO; +victoza PO
[2018-08-22 16:57] VITALS: BP 121/74
== END 2018-08-22 16:59 | disposition home or self-care (01) ==
LOC: ED 16:40
DX: R21 Rash and other nonspecific skin eruption (principal); I48.91 Unspecified atrial fibrillation; E11.9 Type 2 diabetes mellitus without complications; I10 Essential (primary) hypertension; G43.909 Migraine, unspecified, not intractable, without status migrainosus
CPT/HCPCS: 76642; 87070; 87205; 99285

== ENCOUNTER 2018-11-23 08:56 | Emergency (ER) | payer MEDICARE, MEDICAID ==
[~2018-11-23] VITALS: Ht 165.1 cm; Wt 121.6 kg
[~2018-11-23 08:56] MED LIST changes: +LORA-247 PO; -LORA10TA3 PO; -TRAZ-136 PO; +TRAZ50TA66 PO
[2018-11-23 08:57] VITALS: BP 133/92
== END 2018-11-23 09:49 | disposition home or self-care (01) ==
LOC: ED 09:24
DX: S91.301A Unspecified open wound, right foot, initial encounter (principal); I48.91 Unspecified atrial fibrillation; I10 Essential (primary) hypertension; E11.9 Type 2 diabetes mellitus without complications; Z88.1 Allergy status to other antibiotic agents; Z88.2 Allergy status to sulfonamides; Z88.8 Allergy status to other drugs, medicaments and biological substances; W45.0XXA Nail entering through skin, initial encounter; Y93.89 Activity, other specified; Y92.009 Unspecified place in unspecified non-institutional (private) residence as the place of occurrence of the external cause; Y99.8 Other external cause status
CPT/HCPCS: 99283

== ENCOUNTER 2018-12-09 06:35 | Day surgery (SDC) | payer MEDICARE, MEDICAID ==
[~2018-12-09] VITALS: Ht 165.1 cm; Wt 120.2 kg
[2018-12-09 07:37] VITALS: BP 123/84
[2018-12-09] MEDS ORDERED: SODIUM CHLORIDE 0.9% 1,000 ML IV SCH (07:39)
[2018-12-09] MEDS ORDERED: LIDOCAINE-MPF 1%, 5ML ONE (07:51)
[2018-12-09] MEDS ORDERED: OMNIPAQUE 300 MG/ML, 10ML VIAL ONE (09:53)
== END 2018-12-09 13:45 | disposition home or self-care (01) ==
LOC: OUT 06:35
PROVIDERS: ATTEND Physician Assistant Surgical
DX: M54.16 Radiculopathy, lumbar region (principal); I48.91 Unspecified atrial fibrillation; G43.909 Migraine, unspecified, not intractable, without status migrainosus; J45.909 Unspecified asthma, uncomplicated; Z87.01 Personal history of pneumonia (recurrent); Z87.39 Personal history of other diseases of the musculoskeletal system and connective tissue; Z98.890 Other specified postprocedural states; Z90.49 Acquired absence of other specified parts of digestive tract; Z88.1 Allergy status to other antibiotic agents; Z88.5 Allergy status to narcotic agent; Z88.8 Allergy status to other drugs, medicaments and biological substances
CPT/HCPCS: 62284; 72126; 72132; Q9967

== ENCOUNTER 2019-09-24 15:20 | Emergency (ER) | payer MEDICAID, MEDICARE ==
[~2019-09-24] VITALS: Ht 165.1 cm; Wt 126.3 kg
--- NOTE | 2019-09-24 15:45 | NUR ---
THIS IS A 29 YO F BIB [facility] FOR COUGH, WEAKNESS AND HEMOPTYSIS X1 WEEK. PATIENT HAS A POSITIVE HISTORY OF TB. SHE STATES THAT SHE RECEIVES CHEST XRAYS ANNUALLY. RESPIRATIONS ARE EVEN AND UNLABORED. AUDIBLE EXPIRATORY WHEEZING NOTED. PATIENT PLACED IN ISOLATION. VITALS OBTAINED. PATIENT RESTING ON GURNEY WITH NO FURTHER NEEDS AT THIS TIME.
[2019-09-24] MEDS ORDERED: SODIUM CHLORIDE FLUSH 10ML SYR IVF ONE (16:00)
--- NOTE | 2019-09-24 16:02 | NUR ---
PATIENT MOVED TO NEGATIVE PRESSURE ROOM. LABS BEING DRAWN.
[2019-09-24] MEDS ORDERED: ONDA4TAB12 PO (16:13)
[2019-09-24] MEDS ORDERED: ZIPR80CA3 PO (16:13)
[2019-09-24] MEDS ORDERED: PREG300C PO (16:13)
[2019-09-24] MEDS ORDERED: METH750T2 PO (16:13)
[2019-09-24] MEDS ORDERED: BUSP10TA PO (16:22)
[2019-09-24] MEDS ORDERED: MYCO500T3 PO (16:22)
[2019-09-24] MEDS ORDERED: DULA1.5P PO (16:22)
[2019-09-24] MEDS ORDERED: LEVO75TA5 PO (16:25)
[2019-09-24] MEDS ORDERED: PRED10TA PO (16:28)
[2019-09-24] MEDS ORDERED: MONT10TA9 PO (16:28)
[2019-09-24] MEDS ORDERED: TIOT18CA INH (16:28)
[2019-09-24] MEDS ORDERED: FOLI0.8T2 PO (16:28)
--- NOTE | 2019-09-24 16:41 | NUR ---
PIV STARTED. PATIENT RESTING ON GURNEY WITH FAMILY AT BEDSIDE. DENIES FURTHER NEEDS AT THIS TIME.
--- NOTE | 2019-09-24 17:07 | NUR ---
PATIENT AMBULATED TO THE BATHROOM WITH A CANE. STEADY GAIT OBSERVED.
[2019-09-24 17:20] LABS: BASOPHILS # (AUTO) 0.05 x10^3/uL (0-0.1); BASOPHILS % (AUTO) 1 % (0-1); EOSINOPHILS # (AUTO) 0.08 x10^3/uL (0-0.4); EOSINOPHILS % (AUTO) 1 % (1-7); LYMPHOCYTES % (AUTO) 23 % (22-44); MD NO; MEAN CORPUSCULAR HGB CONC 33.2 g/dL (32.4-35.8); MEAN CORPUSCULAR VOLUME 93.5 fL (80-100); MEAN PLATELET VOLUME 11.1 fL (7.4-10.4); MONOCYTES # (AUTO) 0.56 x10^3/uL (0.2-0.8); MONOCYTES % (AUTO) 7 % (2-9); NEUTROPHILS # (AUTO) 5.55 x10^3/uL (1.8-6.8); NEUTROPHILS % (AUTO) 68 % (42-75); PLATELET COUNT 211 x10^3/uL (130-400); RED BLOOD COUNT 4.51 x10^6/uL (3.82-5.3); RED CELL DISTRIBUTION WIDTH 13.1 % (9.6-15.2)
[2019-09-24 17:22] LABS: ALBUMIN 4.2 g/dL (3.4-5.0); ANION GAP 9 mmol/L (5-15); CALCIUM 9.4 mg/dL (8.5-10.1); CHLORIDE 105 mmol/L (98-107)
[2019-09-24 17:28] LABS: ALANINE AMINOTRANSFERASE 37 U/L (12-78); ALKALINE PHOSPHATASE 58 U/L (45-117); BILIRUBIN,TOTAL 0.4 mg/dL (0.2-1.0); CREATININE 0.85 mg/dL (0.55-1.02); TOTAL PROTEIN 7.4 g/dL (6.4-8.2)
--- NOTE | 2019-09-24 17:51 | NUR ---
TASK RN: RIGHT FOREARM 18GA (2.5 INCH) PIV PLACED WITH U.S. GOOD BLOOD RETURN AND SEALED PLACEMENT CONFIRMED WITH LONG ACCESS U.S. PRIMARY RN (ORION) MADE AWARE. PER PATIENT REQUEST RIGHT UPPER ARM PIV REMOVED
--- NOTE | 2019-09-24 18:25 | NUR ---
PATIENT TO RADIOLOGY.
[2019-09-24] MEDS ORDERED: ACETAMINOPHEN 500 MG TABLET ONE (18:44)
--- NOTE | 2019-09-24 18:54 | NUR ---
PATIENT MEDICATED PER EMAR
--- NOTE | 2019-09-24 18:58 | NUR ---
Pt report from lilly da silva. This rn to assume care of pt.
[2019-09-24] MEDS ORDERED: ACETAMINOPHEN 500 MG TABLET PO ONE (19:00)
[2019-09-24 19:46] VITALS: BP 136/86
[2019-09-24] MEDS ORDERED: OMNIPAQUE 350 MG/ML, 100ML BOTTLE ONE (23:16)
== END 2019-09-24 20:03 | disposition home or self-care (01) ==
LOC: ED 20:00
DX: R07.89 Other chest pain (principal); I10 Essential (primary) hypertension; E11.9 Type 2 diabetes mellitus without complications; I48.91 Unspecified atrial fibrillation
CPT/HCPCS: 36415; 71275; 80053; 83880; 85025; 93005; 99284; Q9967

== ENCOUNTER 2020-03-10 21:25 | Emergency (ER) | payer MEDICARE, MEDICAID ==
[~2020-03-10] VITALS: Ht 165.1 cm; Wt 110.0 kg
[~2020-03-10 21:25] MED LIST changes: +BUSP10TA PO; +DULA1.5P PO; +FOLI0.8T2 PO; +METH750T2 PO; +MONT10TA11 PO; +MYCO500T3 PO; +ONDA-89 PO; +PREG300C PO; +TIOT18CA INH; -TRAZ-137 PO; +TRAZ-175 PO; +ZIPR80CA3 PO
--- NOTE | 2020-03-10 21:37 | NUR ---
TASK RN: THIS IS A 29Y F BIB EMS FROM HOME FOR SUDDEN ONSET OF BURNING/ STABBING R FLANK PAIN WITH BURNING URINATION. PT STS SHE WAS UP TO RESTROOM AND WHILE URINATING THE BURNING PAIN CAME ON. PT STS SHE HAS NO HX OF KIDNEY STONES OR UTI'S TO HER KNOWLEDGE. PT REPORTS PAIN STILL HERE AND DOES NOT GO AWAY WHEN NOT URINATING. PT CONNECTED TO ALL MONITORING VSS NADN.
--- NOTE | 2020-03-10 21:45 | NUR ---
REPORT RECEIVED FROM PETE ROSENTHAL. PLAN OF CARE DISCUSSED. ERP IN ROOM FOR EVAL
[2020-03-10] MEDS ORDERED: MORPHINE SULFATE 4 MG/ML, 1ML ONE ×2 (21:54→23:36)
[2020-03-10] MEDS ORDERED: DIPHENHYDRAMINE 50 MG/ML, 1ML ONE (21:54)
[2020-03-10] MEDS ORDERED: ONDANSETRON 2MG/ML, 2ML ONE (21:58)
[2020-03-10] MEDS ORDERED: DIPHENHYDRAMINE 50 MG/ML, 1ML IVPush ONE (22:00)
[2020-03-10] MEDS ORDERED: SODIUM CHLORIDE FLUSH 10ML SYR IVF ONE (22:00)
[2020-03-10 22:14] LABS: BASOPHILS # (AUTO) 0.05 x10^3/uL (0-0.1); BASOPHILS % (AUTO) 1 % (0-1); EOSINOPHILS # (AUTO) 0.01 x10^3/uL (0-0.4); EOSINOPHILS % (AUTO) 0 % (1-7); LYMPHOCYTES # (AUTO) 0.85 x10^3/uL (1-3.4); LYMPHOCYTES % (AUTO) 11 % (22-44); MD NO; MEAN CORPUSCULAR HEMOGLOBIN 30.1 pg (27.0-34.8); MEAN CORPUSCULAR HGB CONC 32.8 g/dL (32.4-35.8); MEAN PLATELET VOLUME 9.6 fL (7.4-10.4); MONOCYTES # (AUTO) 0.48 x10^3/uL (0.2-0.8); MONOCYTES % (AUTO) 6 % (2-9); NEUTROPHILS # (AUTO) 6.63 x10^3/uL (1.8-6.8); NEUTROPHILS % (AUTO) 83 % (42-75); PLATELET COUNT 133 x10^3/uL (130-400); RED BLOOD COUNT 4.26 x10^6/uL (3.82-5.3); RED CELL DISTRIBUTION WIDTH 16.3 % (9.6-15.2)
[2020-03-10 22:19] LABS: ALANINE AMINOTRANSFERASE 57 U/L (12-78); ALBUMIN 3.5 g/dL (3.4-5.0); ANION GAP 9 mmol/L (5-15); CALCIUM 8.5 mg/dL (8.5-10.1); CHLORIDE 115 mmol/L (98-107); CREATININE 0.94 mg/dL (0.55-1.02)
[2020-03-10 22:21] LABS: ALKALINE PHOSPHATASE 54 U/L (45-117); BILIRUBIN,TOTAL 0.3 mg/dL (0.2-1.0); TOTAL PROTEIN 6.2 g/dL (6.4-8.2)
[2020-03-10] MEDS: MORPHINE SULFATE 4 MG/ML, 1ML IVPush PRN ×2 (22:32→23:44)
--- NOTE | 2020-03-10 22:42 | NUR ---
PIV PLACED VIA ULTRASOUND BY PETE DE LA ROSA. PATIENT MEDICATED PER EMAR, TOELRATED WELL. STRAIGHT CATH PERFORMED TO OBTAIN STERILE UA
--- NOTE | 2020-03-10 22:51 | NUR ---
PATIENT TO CT
[2020-03-10 22:55] LABS: MICROSCOPIC NOT IND
[2020-03-10 22:58] LABS: CULTURE INDICATED? NO
[2020-03-10] MEDS ORDERED: ONDANSETRON 2MG/ML, 2ML IVPush ONE (23:00)
--- NOTE | 2020-03-10 23:35 | NUR ---
PATIENT C/O "CRACKLY LUNGS" AND REQUESTS A BREATHING TREATMENT, LUNG SOUNDS CLEAR THROUGHOUT, SPO2 AT 98% ON RA, RESPIRATIONS EVEN AND UNLABORED. ERP NOTIFIED.
[2020-03-10 23:40] VITALS: BP 130/69
--- NOTE | 2020-03-10 23:45 | NUR ---
PATIENT GIVEN 2MG OF SECOND DOSE OF MORHINE, DISCUSSED WITH DR. AGOSTO, DUE TO INCREASE OF PAIN AFTER MOVEMENT IN CT.
--- NOTE | 2020-03-10 23:54 | NUR ---
CALL PLACED TO CT DUE TO DELAY IN CT READ, STATES IT IS BEING READ NOW
--- NOTE | 2020-03-11 00:48 | NUR ---
Patient/Caregiver given discharge instructions and they have confirmed that they understand the instructions. Patient discharged in own wheelchair, Call placed to get wheelchair accessible taxi
== END 2020-03-11 00:51 | disposition home or self-care (01) ==
LOC: ED 21:55
DX: R10.9 Unspecified abdominal pain (principal); M54.5 Low back pain; R05 Cough; R30.0 Dysuria; E11.9 Type 2 diabetes mellitus without complications; I10 Essential (primary) hypertension; G43.909 Migraine, unspecified, not intractable, without status migrainosus; I48.91 Unspecified atrial fibrillation
CPT/HCPCS: 36415; 74176; 80053; 81003; 83690; 84703; 85025; 96374; 96375; 96376; 99284; J1200; J2270; J2405

== ENCOUNTER 2020-03-11 18:40 | Emergency (ER) | payer MEDICARE, MEDICAID ==
[~2020-03-11] VITALS: Ht 165.1 cm; Wt 110.0 kg
--- NOTE | 2020-03-11 18:51 | NUR ---
BIB [facility] FOR RLQ PAIN. PT DESCRIBES PAIN AT BLOATING, TIGHT, SHARP. [facility] BS 128. A&OX4. HX ENCEPHALOPATHY AND W/C BOUND. PT LIVES WITH GRANDMOTHER. PURCHASING CLERK [facility]: ZOFRAN 4MG SL. PT CONNECTED TO MONITORING. CALL LIGHT IN REACH. PROVIDER AT BEDSIDE. AWAITING ORDERS.
[2020-03-11] MEDS ORDERED: SODIUM CHLORIDE FLUSH 10ML SYR IVF ONE (19:00)
[2020-03-11 19:18] LABS: BASOPHILS % (AUTO) 0 % (0-1); EOSINOPHILS % (AUTO) 0 % (1-7); LYMPHOCYTES # (AUTO) 0.58 x10^3/uL (1-3.4); LYMPHOCYTES % (AUTO) 8 % (22-44); MD NO; MEAN CORPUSCULAR HEMOGLOBIN 30.4 pg (27.0-34.8); MEAN CORPUSCULAR HGB CONC 32.9 g/dL (32.4-35.8); MEAN CORPUSCULAR VOLUME 92.4 fL (80-100); MEAN PLATELET VOLUME 9.4 fL (7.4-10.4); MONOCYTES # (AUTO) 0.15 x10^3/uL (0.2-0.8); MONOCYTES % (AUTO) 2 % (2-9); NEUTROPHILS # (AUTO) 6.83 x10^3/uL (1.8-6.8); NEUTROPHILS % (AUTO) 90 % (42-75); PLATELET COUNT 150 x10^3/uL (130-400); RED BLOOD COUNT 4.21 x10^6/uL (3.82-5.3); RED CELL DISTRIBUTION WIDTH 15.8 % (9.6-15.2)
[2020-03-11 19:29] LABS: ALANINE AMINOTRANSFERASE 51 U/L (12-78); ALBUMIN 3.4 g/dL (3.4-5.0); ANION GAP 9 mmol/L (5-15); CALCIUM 8.2 mg/dL (8.5-10.1); CHLORIDE 116 mmol/L (98-107)
[2020-03-11 19:34] LABS: ALKALINE PHOSPHATASE 50 U/L (45-117); BILIRUBIN,TOTAL 0.3 mg/dL (0.2-1.0); CREATININE 0.85 mg/dL (0.55-1.02)
--- NOTE | 2020-03-11 19:49 | NUR ---
BREAK RN: PT OFF BEDPAN, CLEANED, SHEET CHANGE. EJ EST BY ALEX FOR CT W CONTRAST. PLAN FOR STRAIGHT CATH PER .
--- NOTE | 2020-03-11 20:00 | NUR ---
URINE OBTAIN VIA STRAIGHT CATH AND TAKEN TO LAB. PT TOLERATED WELL. PT [facility]LY [facility]
[2020-03-11] MEDS ORDERED: KETOROLAC 30 MG/1 ML ONE (20:04)
--- NOTE | 2020-03-11 20:10 | NUR ---
PT GOING TO CT.
[2020-03-11] MEDS ORDERED: KETOROLAC 30 MG/1 ML IVPush ONE (20:30)
[2020-03-11] MEDS ORDERED: PLEASE ENTER HEIGHT AND WEIGHT MC SCH (20:30)
[2020-03-11 20:44] LABS: MICROSCOPIC INDICATED
[2020-03-11 20:53] LABS: CULTURE INDICATED? NO
[2020-03-11 21:04] VITALS: BP 132/81
--- NOTE | 2020-03-11 21:04 | NUR ---
PT BACK FROM CT. PT STATES PAIN IS BETTER AFTER PAIN MEDS. PT RESTING ON [place]. DRE.
--- NOTE | 2020-03-11 21:12 | NUR ---
ALL RESULTS ARE BACK AT THIS TIME. CHART UP FOR RECHECK.
[2020-03-11] MEDS ORDERED: OMNIPAQUE 350 MG/ML, 100ML BOTTLE ONE (22:59)
== END 2020-03-11 22:33 | disposition home or self-care (01) ==
LOC: ED 20:58
DX: S09.90XA Unspecified injury of head, initial encounter (principal); N83.201 Unspecified ovarian cyst, right side; R10.11 Right upper quadrant pain; R94.31 Abnormal electrocardiogram [ECG] [EKG]; I10 Essential (primary) hypertension; E11.9 Type 2 diabetes mellitus without complications; I48.91 Unspecified atrial fibrillation; G89.29 Other chronic pain; G43.909 Migraine, unspecified, not intractable, without status migrainosus; E66.01 Morbid (severe) obesity due to excess calories; Z68.41 Body mass index [BMI] 40.0-44.9, adult; X58.XXXA Exposure to other specified factors, initial encounter; Y93.89 Activity, other specified; Y92.89 Other specified places as the place of occurrence of the external cause; Y99.8 Other external cause status
CPT/HCPCS: 36415; 36556; 70450; 74177; 80053; 81001; 83605; 84703; 85025; 93005; 96374; 99285; J1885; Q9967

== ENCOUNTER 2020-03-30 15:56 | Emergency (ER) | payer MEDICARE, MEDICAID ==
[~2020-03-30] VITALS: Ht 165.1 cm; Wt 120.0 kg
--- NOTE | 2020-03-30 16:04 | NUR ---
BIB [facility] FROM HOME FOR MECHANICAL GLF ON FRIDAY. PAIN TO LEFT HIP AND KNEE, HEMATOMA TO GROIN AREA. PT TOOK TYLENOL 1000MG THIS AM FOR PAIN. PT CONNECTED TO MONITORING. CALL LIGHT IN REACH. AWAITING ORDERS AT THIS TIME.
[2020-03-30] MEDS ORDERED: HYDROcodone/APAP 5/325 TABLET ONE (17:10)
--- NOTE | 2020-03-30 17:14 | NUR ---
HOGSHEAD HAND PER JAN. ALL RESULTS ARE BACK AT THIS TIME. CHART UP FOR RECHECK.
--- NOTE | 2020-03-30 17:24 | NUR ---
PROVIDER REQUESTED RECORDS FROM [facility].
[2020-03-30] MEDS ORDERED: HYDROcodone/APAP 5/325 TABLET PO ONE (17:30)
[2020-03-30] MEDS ORDERED: ONDANSETRON 2MG/ML, 2ML IVPush ONE (17:30)
[2020-03-30] MEDS ORDERED: MORPHINE SULFATE 4 MG/ML, 1ML IVPush ONE (17:30)
--- NOTE | 2020-03-30 17:37 | NUR ---
PROVIDER AT BEDSIDE TO UPDATE PT ON POC.
[2020-03-30 18:01] VITALS: BP 128/72
--- NOTE | 2020-03-30 18:01 | NUR ---
PROVIDER AT BEDSIDE TO UPDATE PT ON POC.
--- NOTE | 2020-03-30 19:28 | NUR ---
Pt assisted to wheel chair with team asssist of Gee Bonilla and this RN and Dennis GOLDMAN assisted with back support.
== END 2020-03-30 19:36 | disposition home or self-care (01) ==
LOC: ED 19:00
DX: S80.02XA Contusion of left knee, initial encounter (principal); M25.552 Pain in left hip; M54.5 Low back pain; R53.1 Weakness; G89.11 Acute pain due to trauma; I10 Essential (primary) hypertension; E11.9 Type 2 diabetes mellitus without complications; I48.91 Unspecified atrial fibrillation; G89.29 Other chronic pain; W06.XXXA Fall from bed, initial encounter; Y93.89 Activity, other specified; Y92.009 Unspecified place in unspecified non-institutional (private) residence as the place of occurrence of the external cause; Y99.8 Other external cause status
CPT/HCPCS: 72110; 99284

== ENCOUNTER 2020-04-08 22:31 | Inpatient (IN) | payer MEDICARE, MEDICAID ==
[~2020-04-08] VITALS: Ht 165.1 cm; Wt 119.9 kg
[2020-04-08] MEDS ORDERED: OXYcodone/APAP 5/325MG TABLET PO ONE (23:00)
[2020-04-08] MEDS ORDERED: OXYcodone/APAP 5/325MG TABLET ONE (23:15)
[2020-04-08 23:16] LABS: BASOPHILS # (AUTO) 0.03 x10^3/uL (0-0.1); BASOPHILS % (AUTO) 0 % (0-1); EOSINOPHILS # (AUTO) 0.01 x10^3/uL (0-0.4); EOSINOPHILS % (AUTO) 0 % (1-7); LYMPHOCYTES % (AUTO) 12 % (22-44); MD NO; MEAN CORPUSCULAR HEMOGLOBIN 30.4 pg (27.0-34.8); MEAN CORPUSCULAR VOLUME 92.2 fL (80-100); MEAN PLATELET VOLUME 9.9 fL (7.4-10.4); MONOCYTES # (AUTO) 0.55 x10^3/uL (0.2-0.8); MONOCYTES % (AUTO) 7 % (2-9); NEUTROPHILS % (AUTO) 81 % (42-75); PLATELET COUNT 157 x10^3/uL (130-400); RED BLOOD COUNT 4.25 x10^6/uL (3.82-5.3); RED CELL DISTRIBUTION WIDTH 14.9 % (9.6-15.2)
[2020-04-08 23:25] LABS: ALANINE AMINOTRANSFERASE 74 U/L (12-78); ALBUMIN 3.7 g/dL (3.4-5.0); ANION GAP 12 mmol/L (5-15); CALCIUM 8.4 mg/dL (8.5-10.1); CHLORIDE 112 mmol/L (98-107); CREATININE 1.04 mg/dL (0.55-1.02)
--- NOTE | 2020-04-08 23:25 | NUR ---
Pt presents with c/o bilat flank pain. States her urine has been darker than normal. Pt has mcmahan in place s/t urinary retention. UA pulled from mcmahan using sterile technique and sent to lab. Pt also c/o CP and SOB for 1 week. Pt also states she slide OOB today and hit her leg on ground. Bruising noted to L knee and L hip. ERP updated to pt's additional complaints and new orders received. Pt medicated per MAR for flank pain.
[2020-04-08 23:27] LABS: ALKALINE PHOSPHATASE 45 U/L (45-117); BILIRUBIN,TOTAL 0.2 mg/dL (0.2-1.0); TOTAL PROTEIN 6.4 g/dL (6.4-8.2)
--- NOTE | 2020-04-08 23:28 | NUR ---
Pt to xray via emma
[2020-04-08] MEDS ORDERED: SODIUM CHLORIDE FLUSH 10ML SYR IVF ONE (23:30)
[2020-04-08 23:33] LABS: MICROSCOPIC INDICATED
--- NOTE | 2020-04-09 | NUR ---
Pt in CT via emma
[2020-04-09 00:03] LABS: TROPONIN I < 0.015 ng/mL (0.000-0.045)
[2020-04-09] MEDS ORDERED: FOSFOMYCIN 3 GM PACKET PO ONE (00:30)
[2020-04-09] MEDS ORDERED: SODIUM CHLORIDE FLUSH 10ML SYR IVF ONE (00:30)
[2020-04-09] MEDS ORDERED: SODIUM CHLORIDE 0.9% 1,000ML IVBOLUS ONE ×2 (00:30)
--- NOTE | 2020-04-09 00:49 | NUR ---
PT PLACED ON 2L NC PER REQUEST. STATES SHE IS FEELING SOB AND WEARS O2 AT HOME PRN. PT NSR ON MONITOR. VSS. IV FLUIDS INFUSING. PT AWARE OF POC.
[2020-04-09] MEDS ORDERED: FOSFOMYCIN 3 GM PACKET ONE (01:34)
[2020-04-09] MEDS ORDERED: TRAZ50TA66 PO (01:43)
[2020-04-09] MEDS ORDERED: INSU100V8 SQ (01:43)
[2020-04-09] MEDS ORDERED: LEVO100T5 PO (01:43)
[2020-04-09] MEDS ORDERED: ZIPR40CA3 PO (01:43)
[2020-04-09] MEDS ORDERED: METH750T87 PO (01:43)
[2020-04-09] MEDS ORDERED: PRED20TA PO (01:43)
[2020-04-09] MEDS ORDERED: FURO80TA77 PO (01:43)
--- NOTE | 2020-04-09 01:51 | NUR ---
Pt medicated per JAN. Blood cultures have been drawn. Confirmed no cross reaction with pt's known med allergies with Faustino in pharmacy. Ok to give per pharmacy. Pt requesting pain meds. Admitting MD, Dr Agustin, aware and will eval pt. Awaiting further orders. Pt to be transferred to floor after MD assess.
--- NOTE | 2020-04-09 02:31 | NUR ---
Admitting MD, Dr Agustin, at bedside to [facility].
--- NOTE | 2020-04-09 02:34 | NUR ---
Pt requesting Dilaudid be removed from her allergy list. Pt states she is not allergic to any pain meds. Allergy removed.
[2020-04-09] MEDS ORDERED: Diamox PO ×2 (02:38)
[2020-04-09] MEDS ORDERED: MORPHINE SULFATE 4 MG/ML, 1ML ONE (02:48)
[2020-04-09] MEDS: morphine SULFATE 10 MG/ML, 1ML IVPush PRN ×4 (02:52→14:42)
--- NOTE | 2020-04-09 02:55 | NUR ---
Pt medicated per verbal order from Dr Agustin for 2 mg Morphine IV. IV fluids infusing. VSS. Pt states she is feeling better after fluids. Updated report called to floor RN. Pt to be transferred to floor.
[2020-04-09] MEDS ORDERED: ACETAMINOPHEN 325 MG TABLET PO PRN (03:00)
[2020-04-09] MEDS ORDERED: hydrALAzine 20 MG/ML, 1ML IVPush PRN (03:00)
[2020-04-09] MEDS ORDERED: ONDANSETRON 2MG/ML, 2ML IVPush PRN (03:00)
[2020-04-09] MEDS ORDERED: PROMETHAZINE 25 MG/ML, 1ML IM PRN (03:00)
[2020-04-09 03:11] VITALS: BP 129/72
[2020-04-09] MEDS ORDERED: CEFTRIAXONE MC SCH (03:30)
[2020-04-09 04:16] LABS: AMPHETAMINE SCREEN, URINE Negative (Negative); BENZODIAZEPINE SCREEN, URINE Negative (Negative); CANNABINOID SCREEN, URINE Negative (Negative); COCAINE SCREEN, URINE Negative (Negative); METHADONE SCREEN, URINE Negative (Negative); OPIATE SCREEN, URINE Positive (Negative)
[2020-04-09 04:17] LABS: BARBITURATE SCREEN, URINE Negative (Negative)
[2020-04-09 05:03] LABS: ANION GAP 10 mmol/L (5-15); BASOPHILS # (AUTO) 0.02 x10^3/uL (0-0.1); BASOPHILS % (AUTO) 0 % (0-1); CALCIUM 7.8 mg/dL (8.5-10.1); CHLORIDE 116 mmol/L (98-107); CREATININE 0.84 mg/dL (0.55-1.02); EOSINOPHILS # (AUTO) 0.04 x10^3/uL (0-0.4); EOSINOPHILS % (AUTO) 1 % (1-7); LYMPHOCYTES # (AUTO) 1.64 x10^3/uL (1-3.4); LYMPHOCYTES % (AUTO) 22 % (22-44); MD NO; MEAN CORPUSCULAR HEMOGLOBIN 30.6 pg (27.0-34.8); MEAN CORPUSCULAR HGB CONC 33.2 g/dL (32.4-35.8); MEAN CORPUSCULAR VOLUME 92.2 fL (80-100); MEAN PLATELET VOLUME 10.3 fL (7.4-10.4); MONOCYTES # (AUTO) 0.51 x10^3/uL (0.2-0.8); MONOCYTES % (AUTO) 7 % (2-9); NEUTROPHILS # (AUTO) 5.26 x10^3/uL (1.8-6.8); NEUTROPHILS % (AUTO) 70 % (42-75); PLATELET COUNT 131 x10^3/uL (130-400); RED BLOOD COUNT 3.86 x10^6/uL (3.82-5.3); RED CELL DISTRIBUTION WIDTH 15.1 % (9.6-15.2)
[2020-04-09] MEDS ORDERED: ONDANSETRON 4 MG TABLET PO PRN (06:30)
[2020-04-09] MEDS: ALBUTEROL/IPRATROPIUM 2.5MG/0.5MG, 3 ML HHN SCH ×4 (07:28→18:49)
[2020-04-09] MEDS: BUDESONIDE 0.5 MG/2 ML INHA INH SCH ×2 (07:28→18:49)
[2020-04-09 07:38] VITALS: BP 101/48
[2020-04-09] MEDS: BUSPIRONE 10 MG TABLET PO SCH ×2 (07:53→21:39)
[2020-04-09] MEDS: CEFTRIAXONE PMX 1GM/50ML 50 ML IV SCH (07:53)
[2020-04-09] MEDS: MONTELUKAST 10 MG TABLET PO SCH (07:53)
[2020-04-09] MEDS: ZIPRASIDONE 40MG CAPSULE PO SCH ×2 (07:53→21:38)
[2020-04-09] MEDS: METHOCARBAMOL 750 MG TABLET PO SCH ×3 (07:54→21:39)
[2020-04-09] MEDS: LEVOTHYROXINE 100 MCG TABLET PO SCH (07:54)
[2020-04-09] MEDS: SENNA/DOCUSATE TABLET PO SCH (07:54)
[2020-04-09] MEDS: PREGABALIN 150 MG CAPSULE PO SCH ×2 (07:54→21:38)
[2020-04-09] MEDS: FLUOXETINE HCL 20 MG CAPSULE PO SCH (07:54)
[2020-04-09] MEDS: SODIUM BICARBONATE 650 MG TABLET PO SCH ×2 (07:54→21:37)
[2020-04-09] MEDS: DIPHENHYDRAMINE 50 MG/ML, 1ML IVPush PRN (07:54)
[2020-04-09] MEDS: ASPIRIN 81 MG TABLET EC PO SCH (07:55)
[2020-04-09] MEDS: FUROSEMIDE 80 MG TABLET PO SCH (07:55)
[2020-04-09] MEDS: IVABRADINE HCL 7.5 MG HOMEMEDPO SCH ×2 (08:05→21:00)
[2020-04-09] MEDS: ENOXAPARIN 40 MG/0.4 ML SQ SCH (14:42)
[2020-04-09 14:53] VITALS: BP 107/65
[2020-04-09 19:30] VITALS: BP 102/56
[2020-04-09] MEDS: INSULIN GLARGINE 100 UNITS/ML, PEN SQ-INSULIN SCH (21:00)
[2020-04-09] MEDS: MELATONIN 5 MG TABLET PO SCH (21:39)
[2020-04-09] MEDS: TRAZODONE 50MG TABLET PO SCH (21:39)
[2020-04-10 00:37] VITALS: BP 119/73
[2020-04-10] MEDS: DIPHENHYDRAMINE 50 MG/ML, 1ML IVPush PRN ×2 (02:38→15:22)
[2020-04-10] MEDS: CEFTRIAXONE PMX 1GM/50ML 50 ML IV SCH (03:16)
[2020-04-10] MEDS: morphine SULFATE 10 MG/ML, 1ML IVPush PRN (04:48)
[2020-04-10] MEDS: ALBUTEROL/IPRATROPIUM 2.5MG/0.5MG, 3 ML HHN SCH ×4 (06:55→18:55)
[2020-04-10] MEDS: BUDESONIDE 0.5 MG/2 ML INHA INH SCH ×2 (06:55→18:55)
[2020-04-10 07:59] VITALS: BP 97/59
[2020-04-10] MEDS: IVABRADINE HCL 7.5 MG HOMEMEDPO SCH ×2 (08:39→21:00)
[2020-04-10] MEDS: METHOCARBAMOL 750 MG TABLET PO SCH ×3 (08:40→21:49)
[2020-04-10] MEDS: MONTELUKAST 10 MG TABLET PO SCH (08:40)
[2020-04-10] MEDS: ASPIRIN 81 MG TABLET EC PO SCH (08:40)
[2020-04-10] MEDS: SENNA/DOCUSATE TABLET PO SCH (08:40)
[2020-04-10] MEDS: BUSPIRONE 10 MG TABLET PO SCH ×2 (08:40→21:50)
[2020-04-10] MEDS: SODIUM BICARBONATE 650 MG TABLET PO SCH ×2 (08:40→21:50)
[2020-04-10] MEDS: LEVOTHYROXINE 100 MCG TABLET PO SCH (08:40)
[2020-04-10] MEDS: FUROSEMIDE 80 MG TABLET PO SCH (08:40)
[2020-04-10] MEDS: ZIPRASIDONE 40MG CAPSULE PO SCH ×2 (08:40→21:50)
[2020-04-10] MEDS: FLUOXETINE HCL 20 MG CAPSULE PO SCH (08:41)
[2020-04-10] MEDS: PREGABALIN 150 MG CAPSULE PO SCH ×2 (08:41→21:49)
[2020-04-10 15:10] VITALS: BP 127/57
[2020-04-10] MEDS: ENOXAPARIN 40 MG/0.4 ML SQ SCH (15:23)
[2020-04-10] MEDS: LACTULOSE 10 GM/15 ML UDC PO PRN (18:15)
[2020-04-10 18:31] VITALS: BP 120/69
[2020-04-10 19:20] VITALS: BP 103/56
[2020-04-10] MEDS ORDERED: MORPHINE SULFATE 4 MG/ML, 1ML IVPush ONE (19:30)
[2020-04-10 20:16] LABS: TROPONIN I < 0.015 ng/mL (0.000-0.045)
[2020-04-10] MEDS: INSULIN GLARGINE 100 UNITS/ML, PEN SQ-INSULIN SCH (21:00)
[2020-04-10] MEDS: MELATONIN 5 MG TABLET PO SCH (21:50)
[2020-04-10] MEDS: TRAZODONE 50MG TABLET PO SCH (21:50)
[2020-04-11 00:31] VITALS: BP 101/64
[2020-04-11] MEDS: DIPHENHYDRAMINE 50 MG/ML, 1ML IVPush PRN (03:38)
[2020-04-11] MEDS: CEFTRIAXONE PMX 1GM/50ML 50 ML IV SCH (04:12)
[2020-04-11 06:23] LABS: BASOPHILS # (AUTO) 0.03 x10^3/uL (0-0.1); BASOPHILS % (AUTO) 1 % (0-1); EOSINOPHILS # (AUTO) 0.07 x10^3/uL (0-0.4); EOSINOPHILS % (AUTO) 1 % (1-7); LYMPHOCYTES # (AUTO) 1.62 x10^3/uL (1-3.4); LYMPHOCYTES % (AUTO) 26 % (22-44); MD NO; MEAN CORPUSCULAR HEMOGLOBIN 30.3 pg (27.0-34.8); MEAN CORPUSCULAR HGB CONC 33.1 g/dL (32.4-35.8); MEAN CORPUSCULAR VOLUME 91.5 fL (80-100); MEAN PLATELET VOLUME 9.8 fL (7.4-10.4); MONOCYTES # (AUTO) 0.45 x10^3/uL (0.2-0.8); MONOCYTES % (AUTO) 7 % (2-9); NEUTROPHILS # (AUTO) 3.96 x10^3/uL (1.8-6.8); NEUTROPHILS % (AUTO) 65 % (42-75); PLATELET COUNT 140 x10^3/uL (130-400); RED BLOOD COUNT 4.01 x10^6/uL (3.82-5.3); RED CELL DISTRIBUTION WIDTH 15.5 % (9.6-15.2)
[2020-04-11 06:31] LABS: CHLORIDE 112 mmol/L (98-107)
[2020-04-11 06:32] LABS: ANION GAP 8 mmol/L (5-15); CALCIUM 8.8 mg/dL (8.5-10.1)
[2020-04-11 06:37] LABS: CREATININE 0.96 mg/dL (0.55-1.02); TROPONIN I < 0.015 ng/mL (0.000-0.045)
[2020-04-11] MEDS: ALBUTEROL/IPRATROPIUM 2.5MG/0.5MG, 3 ML HHN SCH ×3 (06:45→15:00)
[2020-04-11] MEDS: BUDESONIDE 0.5 MG/2 ML INHA INH SCH (06:45)
[2020-04-11 07:17] VITALS: BP 107/50
[2020-04-11] MEDS: METHOCARBAMOL 750 MG TABLET PO SCH (08:07)
[2020-04-11] MEDS: PREGABALIN 150 MG CAPSULE PO SCH (08:07)
[2020-04-11] MEDS: FLUOXETINE HCL 20 MG CAPSULE PO SCH (08:07)
[2020-04-11] MEDS: ZIPRASIDONE 40MG CAPSULE PO SCH (08:07)
[2020-04-11] MEDS: FUROSEMIDE 80 MG TABLET PO SCH (08:07)
[2020-04-11] MEDS: MONTELUKAST 10 MG TABLET PO SCH (08:08)
[2020-04-11] MEDS: SODIUM BICARBONATE 650 MG TABLET PO SCH (08:08)
[2020-04-11] MEDS: ASPIRIN 81 MG TABLET EC PO SCH (08:08)
[2020-04-11] MEDS: BUSPIRONE 10 MG TABLET PO SCH (08:08)
[2020-04-11] MEDS: SENNA/DOCUSATE TABLET PO SCH (08:09)
[2020-04-11] MEDS: LEVOTHYROXINE 100 MCG TABLET PO SCH (08:09)
[2020-04-11] MEDS: IVABRADINE HCL 7.5 MG HOMEMEDPO SCH (08:32)
[2020-04-11 13:20] VITALS: BP 117/61
[2020-04-11] MEDS: LACTULOSE 10 GM/15 ML UDC PO PRN (14:35)
[2020-04-11] MEDS ORDERED: POTASSIUM CHLORIDE 20 MEQ TAB.ER.PRT PO ONE (15:00)
== END 2020-04-11 17:27 | disposition home health service (06) | DRG 698 ==
LOC: ED 22:44 → EDIP 04-09 00:16 → 3N 04-09 03:12
PROVIDERS: ADMIT Family Medicine; ATTEND Hospitalist
PROC: 0T9B30Z Drainage of Bladder with Drainage Device, Percutaneous Approach (ICD-10-PCS; 2020-04-08)
PROC: 0T2BX0Z Change Drainage Device in Bladder, External Approach (ICD-10-PCS; principal; 2020-04-09)
DX: T83.518A Infection and inflammatory reaction due to other urinary catheter, initial encounter (principal); R53.2 Functional quadriplegia; J96.10 Chronic respiratory failure, unspecified whether with hypoxia or hypercapnia; E87.2 Acidosis; G91.9 Hydrocephalus, unspecified; N39.0 Urinary tract infection, site not specified; H46.9 Unspecified optic neuritis; Z68.41 Body mass index [BMI] 40.0-44.9, adult; E11.22 Type 2 diabetes mellitus with diabetic chronic kidney disease; E11.40 Type 2 diabetes mellitus with diabetic neuropathy, unspecified; E66.01 Morbid (severe) obesity due to excess calories; D89.9 Disorder involving the immune mechanism, unspecified; F32.9 Major depressive disorder, single episode, unspecified; E89.0 Postprocedural hypothyroidism; F41.9 Anxiety disorder, unspecified; G89.4 Chronic pain syndrome; I12.9 Hypertensive chronic kidney disease with stage 1 through stage 4 chronic kidney disease, or unspecified chronic kidney disease; I48.91 Unspecified atrial fibrillation; J44.9 Chronic obstructive pulmonary disease, unspecified; K21.9 Gastro-esophageal reflux disease without esophagitis; K58.9 Irritable bowel syndrome, unspecified; M79.7 Fibromyalgia; N18.1 Chronic kidney disease, stage 1; R31.29 Other microscopic hematuria; Y84.6 Urinary catheterization as the cause of abnormal reaction of the patient, or of later complication, without mention of misadventure at the time of the procedure; W06.XXXA Fall from bed, initial encounter; N83.209 Unspecified ovarian cyst, unspecified side; Z74.01 Bed confinement status; Z86.11 Personal history of tuberculosis; Z87.442 Personal history of urinary calculi; Z88.9 Allergy status to unspecified drugs, medicaments and biological substances; Z99.3 Dependence on wheelchair; Y93.89 Activity, other specified; Y92.89 Other specified places as the place of occurrence of the external cause; Y99.8 Other external cause status; Z88.8 Allergy status to other drugs, medicaments and biological substances; Z88.1 Allergy status to other antibiotic agents; Z88.2 Allergy status to sulfonamides
CPT/HCPCS: 36415; 71045; 74176; 80048; 80053; 80307; 81001; 82962; 83036; 83605; 83690; 83735; 84443; 84484; 85025; 87040; 87086; 93005; 94640; 96360; G0378; J0696; J1650; J2405; J7626; Q0162; J1200; J2270; J7030; J7512; J7517

== ENCOUNTER 2020-04-17 13:11 | Inpatient (IN) | payer MEDICARE, MEDICAID ==
[~2020-04-17] VITALS: Ht 165.1 cm; Wt 123.7 kg
[~2020-04-17 13:11] MED LIST changes: +Diamox PO; +FURO80TA77 PO; +INSU100V8 SQ; +LEVO100T5 PO; +METH750T87 PO; +PRED20TA PO; +ZIPR40CA3 PO
[2020-04-17] MEDS ORDERED: SODIUM CHLORIDE 0.9% 1,000 ML IV ONE (13:30)
[2020-04-17] MEDS ORDERED: SODIUM CHLORIDE FLUSH 10ML SYR IVF ONE (13:30)
--- NOTE | 2020-04-17 13:57 | NUR ---
MERE COMPLETED. LABS AND CULTURES BEING DRAWN NOW.
[2020-04-17] MEDS ORDERED: PHENAZOPYRIDINE 200 MG TABLET PO ONE (14:00)
[2020-04-17] MEDS ORDERED: PHENAZOPYRIDINE 200 MG TABLET ONE (14:07)
--- NOTE | 2020-04-17 14:17 | NUR ---
IV PLACED, LABS AND CULTURES DRAWN, FLUIDS RUNNING. PT MEDICATED PER JAN. UA COLLECTED AND SENT TO LAB. CALL LIGHT WITHIN REACH. WILL CONTINUE TO MONITOR
[2020-04-17 14:22] LABS: BASOPHILS # (AUTO) 0.02 x10^3/uL (0-0.1); BASOPHILS % (AUTO) 0 % (0-1); EOSINOPHILS # (AUTO) 0.09 x10^3/uL (0-0.4); EOSINOPHILS % (AUTO) 2 % (1-7); LYMPHOCYTES # (AUTO) 1.28 x10^3/uL (1-3.4); LYMPHOCYTES % (AUTO) 20 % (22-44); MD NO; MEAN CORPUSCULAR HEMOGLOBIN 30.2 pg (27.0-34.8); MEAN CORPUSCULAR HGB CONC 32.8 g/dL (32.4-35.8); MEAN PLATELET VOLUME 10.3 fL (7.4-10.4); MONOCYTES # (AUTO) 0.45 x10^3/uL (0.2-0.8); MONOCYTES % (AUTO) 7 % (2-9); NEUTROPHILS # (AUTO) 4.54 x10^3/uL (1.8-6.8); NEUTROPHILS % (AUTO) 71 % (42-75); PLATELET COUNT 154 x10^3/uL (130-400); RED BLOOD COUNT 4.42 x10^6/uL (3.82-5.3); RED CELL DISTRIBUTION WIDTH 14.9 % (9.6-15.2)
[2020-04-17 14:23] LABS: ALBUMIN 3.5 g/dL (3.4-5.0); ANION GAP 7 mmol/L (5-15); CALCIUM 8.1 mg/dL (8.5-10.1); CHLORIDE 120 mmol/L (98-107)
[2020-04-17 14:27] LABS: MICROSCOPIC INDICATED
[2020-04-17 14:29] LABS: ALANINE AMINOTRANSFERASE 144 U/L (12-78); ALKALINE PHOSPHATASE 45 U/L (45-117); BILIRUBIN,TOTAL 0.3 mg/dL (0.2-1.0); CREATININE 0.94 mg/dL (0.55-1.02)
--- NOTE | 2020-04-17 14:52 | NUR ---
PT RESTING IN ROOM AT THIS TIME, NADN. SCOTTS. AWAITING UA RESULTS AND DISPO. WILL CONTINUE TO MONITOR
--- NOTE | 2020-04-17 15:03 | NUR ---
TASK RN NOTE: PT ASLEEP IN BED, NAD NOTED AT THIS TIME. IVF INFUSING. AWAITING UA RESULTS. CURTAIN PULLED FOR PT PRIVACY. SIDE RAILS UP.
--- NOTE | 2020-04-17 15:25 | NUR ---
TASK RN NOTE: HEAT PACK PREPARED FOR PT PER REQUEST. PT POSITIONED TO COMFORT. REG AT BEDSIDE.
--- NOTE | 2020-04-17 16:02 | NUR ---
PT GIVEN ADDITIONAL BLANKET FOR COMFORT. BP SLIGHTLY ELEVATED AT THIS TIME. AWAITING PLAN FROM MD. WILL CONTINUE TO MONITOR
--- NOTE | 2020-04-17 16:23 | NUR ---
DR. ROBINS AT BEDSIDE DISCUSSING OPTIONS WITH PT.
[2020-04-17] MEDS ORDERED: SODIUM CHLORIDE FLUSH 10ML SYR IVF PRN (16:30)
[2020-04-17] MEDS ORDERED: POTA20TA14 PO (16:33)
[2020-04-17] MEDS ORDERED: ACET500C28 PO (16:33)
[2020-04-17] MEDS ORDERED: OXCA150T18 PO (16:33)
[2020-04-17] MEDS ORDERED: LACTULOSE 10 GM/15 ML UDC PO PRN (17:00)
[2020-04-17] MEDS ORDERED: DIPHENHYDRAMINE 25 MG CAPSULE PO PRN (17:00)
[2020-04-17] MEDS ORDERED: CEFTRIAXONE PMX 2GM/50ML 50 ML IV SCH (17:00)
--- NOTE | 2020-04-17 17:30 | NUR ---
REPORT GIVEN TO COLE RN, PT READY FOR TRANSPORT TO FLOOR
[2020-04-17 17:58] VITALS: BP 124/81
[2020-04-17 20:21] VITALS: BP 132/79
[2020-04-17] MEDS: METHOCARBAMOL 750 MG TABLET PO SCH (20:24)
[2020-04-17] MEDS: ZIPRASIDONE 40MG CAPSULE PO SCH (20:24)
[2020-04-17] MEDS: BUSPIRONE 10 MG TABLET PO SCH (20:24)
[2020-04-17] MEDS ORDERED: DIPHENHYDRAMINE 50 MG/ML, 1ML IVPush PRN (20:30)
[2020-04-17] MEDS ORDERED: AcetaZOLAMIDE ER 500 MG CAPSULE PO SCH (21:30)
[2020-04-18 00:51] VITALS: BP 130/78
[2020-04-18] MEDS ORDERED: LEVOTHYROXINE 75 MCG TABLET PO SCH (06:00)
[2020-04-18 06:30] VITALS: BP 156/100
[2020-04-18] MEDS ORDERED: PHENAZOPYRIDINE 100 MG TABLET PO PRN (07:00)
[2020-04-18] MEDS: BUSPIRONE 10 MG TABLET PO SCH (07:43)
[2020-04-18] MEDS: METHOCARBAMOL 750 MG TABLET PO SCH ×2 (07:44→14:56)
[2020-04-18] MEDS: ZIPRASIDONE 40MG CAPSULE PO SCH (07:44)
[2020-04-18] MEDS ORDERED: AcetaZOLAMIDE ER 500 MG CAPSULE PO SCH (09:00)
[2020-04-18] MEDS ORDERED: OXCARBAZEPINE 150 MG TABLET PO SCH (09:00)
[2020-04-18] MEDS ORDERED: ASPIRIN 81 MG TABLET EC PO SCH (09:00)
[2020-04-18] MEDS ORDERED: FUROSEMIDE 80 MG TABLET PO SCH (09:00)
[2020-04-18 12:13] VITALS: BP 104/67
[2020-04-18] MEDS ORDERED: PHEN100T90 PO (13:39)
[2020-04-18] MEDS ORDERED: CEFD300C37 PO (13:39)
[2020-04-18] MEDS ORDERED: ONDANSETRON ODT 4 MG PO ONE (14:00)
[2020-04-18] MEDS ORDERED: ACETAMINOPHEN 325 MG TABLET PO ONE (14:00)
[2020-04-18] MEDS ORDERED: MONTELUKAST 10 MG TABLET PO SCH (21:00)
== END 2020-04-18 14:59 | disposition home health service (06) | DRG 695 ==
LOC: ED 14:56 → EDIP 16:16 → 3N 17:02
PROVIDERS: ADMIT Internal Medicine; ATTEND Internal Medicine
PROC: 0T9B70Z Drainage of Bladder with Drainage Device, Via Natural or Artificial Opening (ICD-10-PCS; principal; 2020-04-17)
DX: R31.9 Hematuria, unspecified (principal); R53.2 Functional quadriplegia; E87.2 Acidosis; H46.9 Unspecified optic neuritis; Z68.42 Body mass index [BMI] 45.0-49.9, adult; I12.9 Hypertensive chronic kidney disease with stage 1 through stage 4 chronic kidney disease, or unspecified chronic kidney disease; E66.01 Morbid (severe) obesity due to excess calories; D89.9 Disorder involving the immune mechanism, unspecified; E11.22 Type 2 diabetes mellitus with diabetic chronic kidney disease; E11.40 Type 2 diabetes mellitus with diabetic neuropathy, unspecified; E89.0 Postprocedural hypothyroidism; F32.9 Major depressive disorder, single episode, unspecified; F41.9 Anxiety disorder, unspecified; G89.4 Chronic pain syndrome; I48.91 Unspecified atrial fibrillation; J44.9 Chronic obstructive pulmonary disease, unspecified; K21.9 Gastro-esophageal reflux disease without esophagitis; M79.7 Fibromyalgia; N18.9 Chronic kidney disease, unspecified; Z88.9 Allergy status to unspecified drugs, medicaments and biological substances; Z99.3 Dependence on wheelchair; Z88.2 Allergy status to sulfonamides; Z88.8 Allergy status to other drugs, medicaments and biological substances
CPT/HCPCS: 36415; 71045; 76770; 80053; 81001; 83605; 85025; 87040; 87086; 87106; G0378; J0696; Q0162; J7030; J7512; J7517; Q0163

== ENCOUNTER 2020-04-29 19:46 | Emergency (ER) | payer MEDICARE, MEDICAID ==
[~2020-04-29] VITALS: Ht 165.1 cm; Wt 115.9 kg
[~2020-04-29 19:46] MED LIST changes: +ACET500C28 PO; +CEFD300C37 PO; +OXCA150T18 PO; +PHEN100T90 PO; +POTA20TA14 PO
[2020-04-29 20:33] LABS: BASOPHILS # (AUTO) 0.01 x10^3/uL (0-0.1); BASOPHILS % (AUTO) 0 % (0-1); EOSINOPHILS # (AUTO) 0.03 x10^3/uL (0-0.4); EOSINOPHILS % (AUTO) 0 % (1-7); LYMPHOCYTES # (AUTO) 1.71 x10^3/uL (1-3.4); LYMPHOCYTES % (AUTO) 20 % (22-44); MD NO; MEAN CORPUSCULAR HGB CONC 33.1 g/dL (32.4-35.8); MEAN CORPUSCULAR VOLUME 90.6 fL (80-100); MEAN PLATELET VOLUME 10.1 fL (7.4-10.4); MONOCYTES # (AUTO) 0.61 x10^3/uL (0.2-0.8); MONOCYTES % (AUTO) 7 % (2-9); NEUTROPHILS # (AUTO) 6.14 x10^3/uL (1.8-6.8); NEUTROPHILS % (AUTO) 72 % (42-75); PLATELET COUNT 191 x10^3/uL (130-400); RED BLOOD COUNT 4.71 x10^6/uL (3.82-5.3); RED CELL DISTRIBUTION WIDTH 14.5 % (9.6-15.2)
[2020-04-29 20:42] LABS: ALBUMIN 3.9 g/dL (3.4-5.0); ANION GAP 11 mmol/L (5-15); CALCIUM 8.9 mg/dL (8.5-10.1); CHLORIDE 110 mmol/L (98-107)
[2020-04-29 20:48] LABS: ALANINE AMINOTRANSFERASE 95 U/L (12-78); ALKALINE PHOSPHATASE 48 U/L (45-117); BILIRUBIN,TOTAL 0.4 mg/dL (0.2-1.0); CREATININE 1.17 mg/dL (0.55-1.02); TOTAL PROTEIN 6.5 g/dL (6.4-8.2)
[2020-04-29 20:49] LABS: MICROSCOPIC INDICATED
[2020-04-29] MEDS ORDERED: ONDANSETRON ODT 4 MG ONE (21:52)
[2020-04-29] MEDS ORDERED: ONDANSETRON ODT 4 MG PO ONE (22:00)
--- NOTE | 2020-04-29 22:00 | NUR ---
REPORT RC'VD FROM TONIO FREEMAN AND CARE OF PT ASSUMED.
--- NOTE | 2020-04-29 22:17 | NUR ---
ERP WAS IN FOR RECHECK.
--- NOTE | 2020-04-29 22:53 | NUR ---
CHART UP FOR RECHECK. REPORTED TO TONEY FREEMAN.
[2020-04-29] MEDS ORDERED: POTASSIUM CHLORIDE 20 MEQ TAB.ER.PRT PO ONE (23:30)
[2020-04-29] MEDS ORDERED: POTASSIUM CHLORIDE 20 MEQ TAB.ER.PRT ONE (23:37)
[2020-04-29 23:41] VITALS: BP 114/71
== END 2020-04-30 00:05 | disposition home or self-care (01) ==
LOC: ED 20:56
DX: R10.84 Generalized abdominal pain (principal); E87.6 Hypokalemia; R11.0 Nausea; I10 Essential (primary) hypertension; E11.9 Type 2 diabetes mellitus without complications; I48.91 Unspecified atrial fibrillation; G89.29 Other chronic pain; G43.909 Migraine, unspecified, not intractable, without status migrainosus
CPT/HCPCS: 36415; 74021; 74176; 80053; 81001; 84703; 85025; 87086; 99285; Q0162

== ENCOUNTER 2020-05-03 18:55 | Emergency (ER) | payer MEDICARE, MEDICAID ==
[~2020-05-03] VITALS: Ht 165.1 cm; Wt 116.0 kg
[2020-05-03 20:23] LABS: BASOPHILS # (AUTO) 0.02 x10^3/uL (0-0.1); BASOPHILS % (AUTO) 0 % (0-1); EOSINOPHILS # (AUTO) 0.01 x10^3/uL (0-0.4); EOSINOPHILS % (AUTO) 0 % (1-7); LYMPHOCYTES # (AUTO) 1.13 x10^3/uL (1-3.4); LYMPHOCYTES % (AUTO) 17 % (22-44); MD NO; MEAN CORPUSCULAR HEMOGLOBIN 29.8 pg (27.0-34.8); MEAN CORPUSCULAR HGB CONC 32.7 g/dL (32.4-35.8); MEAN PLATELET VOLUME 10.5 fL (7.4-10.4); MONOCYTES # (AUTO) 0.44 x10^3/uL (0.2-0.8); MONOCYTES % (AUTO) 7 % (2-9); NEUTROPHILS # (AUTO) 5.03 x10^3/uL (1.8-6.8); NEUTROPHILS % (AUTO) 76 % (42-75); PLATELET COUNT 182 x10^3/uL (130-400); RED CELL DISTRIBUTION WIDTH 14.5 % (9.6-15.2)
[2020-05-03 20:30] LABS: ALBUMIN 3.7 g/dL (3.4-5.0); ANION GAP 12 mmol/L (5-15); CALCIUM 8.3 mg/dL (8.5-10.1); CHLORIDE 116 mmol/L (98-107)
[2020-05-03 20:35] LABS: ALANINE AMINOTRANSFERASE 59 U/L (12-78); ALKALINE PHOSPHATASE 47 U/L (45-117); BILIRUBIN,TOTAL 0.3 mg/dL (0.2-1.0); CREATININE 1.06 mg/dL (0.55-1.02); TOTAL PROTEIN 6.5 g/dL (6.4-8.2)
[2020-05-03] MEDS ORDERED: ONDANSETRON ODT 4 MG ONE (20:57)
[2020-05-03] MEDS ORDERED: ONDANSETRON ODT 4 MG PO ONE (21:00)
[2020-05-03 21:17] LABS: MICROSCOPIC INDICATED
[2020-05-03 22:02] VITALS: BP 121/64
== END 2020-05-03 22:05 | disposition home or self-care (01) ==
LOC: ED 21:10
DX: N30.01 Acute cystitis with hematuria (principal); R10.9 Unspecified abdominal pain; R11.0 Nausea; I51.7 Cardiomegaly; I10 Essential (primary) hypertension; E11.9 Type 2 diabetes mellitus without complications; G43.909 Migraine, unspecified, not intractable, without status migrainosus
CPT/HCPCS: 36415; 80053; 81001; 84703; 85025; 87086; 93005; 99284; Q0162; 87077

== ENCOUNTER 2020-05-08 05:13 | Emergency (ER) | payer MEDICARE, MEDICAID ==
[~2020-05-08] VITALS: Ht 165.1 cm; Wt 118.2 kg
[2020-05-08] MEDS ORDERED: KETOROLAC 30 MG/1 ML IM ONE (05:30)
[2020-05-08] MEDS ORDERED: DIAZEPAM 5 MG TABLET PO ONE (05:30)
[2020-05-08] MEDS ORDERED: KETOROLAC 30 MG/1 ML ONE (06:05)
[2020-05-08] MEDS ORDERED: DIAZEPAM 5 MG TABLET ONE (06:05)
--- NOTE | 2020-05-08 06:35 | NUR ---
Pt resting quietly, states pain has decreased to 8/10.
--- NOTE | 2020-05-08 06:53 | NUR ---
Report from Tawanda FREEMAN. Pt resting in bed, DRE, denies needs. Pt reports pain improved after medications.
[2020-05-08] MEDS ORDERED: OXYcodone/APAP 5/325MG TABLET ONE (07:16)
[2020-05-08] MEDS ORDERED: OXYcodone/APAP 5/325MG TABLET PO ONE (07:30)
--- NOTE | 2020-05-08 07:33 | NUR ---
Pt medicated for 9/10 back pain per JAN. Pt provided with walker and this RN provided SBA as pt ambulated around room. Pt appears weak but is able to ambulate around the room. Pt verbalizes that the distance from the gurney to the chair in the room is the distance at her home from her bed to her commode and this is the only walking she typically does. Pt verbalizes wanting to be discharged. Renate NDIAYE updated on this.
[2020-05-08 07:54] VITALS: BP 118/74
== END 2020-05-08 07:57 | disposition home or self-care (01) ==
LOC: ED 05:42
DX: S39.012A Strain of muscle, fascia and tendon of lower back, initial encounter (principal); M47.896 Other spondylosis, lumbar region; M54.6 Pain in thoracic spine; I10 Essential (primary) hypertension; E11.9 Type 2 diabetes mellitus without complications; G89.29 Other chronic pain; W18.00XA Striking against unspecified object with subsequent fall, initial encounter; Y93.89 Activity, other specified; Y92.89 Other specified places as the place of occurrence of the external cause; Y99.8 Other external cause status
CPT/HCPCS: 72072; 72110; 82962; 96372; 99284; J1885

== ENCOUNTER 2020-05-15 00:48 | Emergency (ER) | payer MEDICARE, MEDICAID ==
[~2020-05-15] VITALS: Ht 165.1 cm; Wt 115.0 kg
--- NOTE | 2020-05-15 01:10 | NUR ---
[facility] FOR C/O CHEST PAIN X2 HOURS. PLACED ON CARDIAC AND VITALS MONITORS.
--- NOTE | 2020-05-15 01:19 | NUR ---
XRAY AT BEDSIDE.
[2020-05-15] MEDS ORDERED: ALBUTEROL SULFATE 2.5 MG/3 ML ONE (02:00)
[2020-05-15] MEDS ORDERED: ALBUTEROL SULFATE 2.5 MG/3 ML NPPB ONE (02:00)
--- NOTE | 2020-05-15 02:01 | NUR ---
PT REPORTS NEEDING ALBUTEROL TREATMENT PER PT SHE USES INHALER AT HOME. AUDIBLE WHEEZING THROUGHOUT. REPORTED TO ERP.
[2020-05-15 02:10] VITALS: BP 138/91
== END 2020-05-15 02:53 | disposition home or self-care (01) ==
LOC: ED 01:18
DX: S80.02XA Contusion of left knee, initial encounter (principal); R07.89 Other chest pain; R11.0 Nausea; R94.31 Abnormal electrocardiogram [ECG] [EKG]; E11.9 Type 2 diabetes mellitus without complications; I10 Essential (primary) hypertension; I48.91 Unspecified atrial fibrillation; G43.909 Migraine, unspecified, not intractable, without status migrainosus; W18.30XA Fall on same level, unspecified, initial encounter; Y93.89 Activity, other specified; Y92.89 Other specified places as the place of occurrence of the external cause; Y99.8 Other external cause status
CPT/HCPCS: 71045; 73564; 93005; 94640; 99284; J7613

== ENCOUNTER 2020-08-30 18:10 | Emergency (ER) | payer MEDICARE, MEDICAID ==
[~2020-08-30] VITALS: Ht 165.1 cm; Wt 115.5 kg
[~2020-08-30 18:10] MED LIST changes: -OXYC-432 PO; +OXYC1TAB18 PO
--- NOTE | 2020-08-30 19:27 | NUR ---
SERVICE MEMBER: PT TO ROOM FROM LOBBY AT THIS TIME WITH STEADY GAIT, AMBULATORY WITH STEADY GAIT.
--- NOTE | 2020-08-30 19:33 | NUR ---
SUPRAPUBIC TUBE GOT PULLED OUT WHEN SHE ROLLED OVER ON HOSPITAL BED. BED IS IN PT'S HOME. STATES TUBE BALLON WAS NOT INFLATED. TUBE PLACED "ABOUT 1 OR SO WEEKS AGO". I HAVE A SUPERBUG IN MY BLADDER. BLOOD ON DEPENDS.
--- NOTE | 2020-08-30 19:37 | NUR ---
PT PRESENTS LIST WITH 9 ALLERGIES AND MULTIPLE MEDICATIONS. LIST WILL BE COPIED AND ADDED TO CHART.
[2020-08-30 19:42] VITALS: BP 136/77
--- NOTE | 2020-08-30 19:42 | NUR ---
PT STATES "WE TRIED TO GET IT BACK IN, BUT COULDN'T". STATES SHE THREW TUBING AWAY; COLLECTION BAG LEFT AT HOME.
--- NOTE | 2020-08-30 21:00 | NUR ---
SUPRAPUBIC TUBE INSERTED PER SENTHIL MILLER. 12FR CATHETER W/ COELLO COLLECTION BAG. COELLO DRAINING PINK BLOOD TINGED FLUID.
[2020-08-30] MEDS ORDERED: ACETAMINOPHEN 325 MG TABLET PO ONE (21:30)
[2020-08-30] MEDS ORDERED: ACETAMINOPHEN 325 MG TABLET ONE (21:32)
== END 2020-08-30 21:44 | disposition home or self-care (01) ==
LOC: ED 19:55
DX: R10.9 Unspecified abdominal pain (principal); T83.098D Other mechanical complication of other urinary catheter, subsequent encounter; I10 Essential (primary) hypertension; E11.9 Type 2 diabetes mellitus without complications; I48.91 Unspecified atrial fibrillation
CPT/HCPCS: 99282

== ENCOUNTER 2020-09-10 23:55 | Emergency (ER) | payer MEDICARE, MEDICAID ==
[~2020-09-10] VITALS: Ht 165.1 cm; Wt 73.0 kg
[2020-09-11] MEDS ORDERED: RACEPINEPHRINE INH 2.25%, 0.5ML NPPB ONE
[2020-09-11] MEDS ORDERED: DEXAMETHASONE 4 MG TABLET PO ONE
[2020-09-11] MEDS ORDERED: LORazepam 1MG TABLET PO ONE
[2020-09-11 00:16] LABS: BASOPHILS % (AUTO) 0 % (0-1); EOSINOPHILS % (AUTO) 0 % (1-7); LYMPHOCYTES % (AUTO) 12 % (22-44); MEAN CORPUSCULAR HEMOGLOBIN 28.2 pg (27.0-34.8); MEAN CORPUSCULAR HGB CONC 31.9 g/dL (32.4-35.8); MONOCYTES % (AUTO) 5 % (2-9); NEUTROPHILS % (AUTO) 83 % (42-75); PLATELET COUNT 148 x10^3/uL (130-400); RED BLOOD COUNT 4.88 x10^6/uL (3.82-5.3); RED CELL DISTRIBUTION WIDTH 15.7 % (9.6-15.2)
[2020-09-11 00:29] LABS: ALBUMIN 3.5 g/dL (3.4-5.0); ANION GAP 9 mmol/L (5-15); CALCIUM 8.6 mg/dL (8.5-10.1); CHLORIDE 115 mmol/L (98-107); CREATININE 0.89 mg/dL (0.55-1.02)
[2020-09-11 00:34] LABS: TROPONIN I < 0.015 ng/mL (0.000-0.045)
[2020-09-11] MEDS ORDERED: LORazepam 1MG TABLET ONE (00:34)
[2020-09-11] MEDS ORDERED: DEXAMETHASONE 4 MG TABLET ONE (00:35)
--- NOTE | 2020-09-11 00:43 | NUR ---
Break RN: assumed care of behalf of primary RN for lunch break only. pt sitting up on gurney in position of comfort. pt has mild audible exp. wheezing. pink warm and dry. pt on telemetry monitor. medicated per order. no family at bedside
[2020-09-11 00:45] LABS: MD SCAN
--- NOTE | 2020-09-11 00:48 | NUR ---
Break RN: pt has been medicated per order. pt advised not to drive after ativan. pt vrbalized understanding and reports that she arrived via ambulance. pt updated on POC
[2020-09-11] MEDS ORDERED: RACEPINEPHRINE INH 2.25%, 0.5ML ONE (00:54)
--- NOTE | 2020-09-11 00:57 | NUR ---
MEDICATION ORDERED FROM PHARMACY
[2020-09-11 02:07] VITALS: BP 130/78
--- NOTE | 2020-09-11 02:08 | NUR ---
LATE ENTRY SUMMARY NOTE: PT ARRIVES TO ER IN A HOSPITAL GOWN. PT QUESTIONED WHERE SHE'S COMING FROM. PT STATES FROM HOME. PT QUESTIONED WHY SHE'S IN A HOSPITAL GOWN "BECAUSE I'M CHRONICALLY SICK." PT STATES SHE HAS A FIB "SOMETIMES" PT ON OFFICE EQUIPMENT MECHANIC FOR DURATION OF STAY, NORMAL SINUS RHYTHM NOTED ON THE MONITOR. PT HAS COELLO CATHETER, URINE YELLOW, DRESSING CD&I. PT HAD AUDIBLE EXPRITORY WHEEZES, THOUGH THEY WOULD NOT BE HEARD WHEN PT WAS TALKING. Addendum: 09/11/20 at 0213 by MTUTTLE LATE ENTRY SUMMARY NOTE: PT ARRIVES TO ER IN A HOSPITAL GOWN. PT QUESTIONED WHERE SHE'S COMING FROM. PT STATES FROM HOME. PT QUESTIONED WHY SHE'S IN A HOSPITAL GOWN "BECAUSE I'M CHRONICALLY SICK." PT STATES SHE HAS A FIB "SOMETIMES" PT ON OFFICE EQUIPMENT MECHANIC FOR DURATION OF STAY, NORMAL SINUS RHYTHM NOTED ON THE MONITOR. PT HAS COELLO CATHETER, URINE YELLOW, DRESSING CD&I. PT HAD AUDIBLE EXPRITORY WHEEZES, THOUGH THEY WOULD NOT BE HEARD WHEN PT WAS TALKING. PT RA O2 SAT >95% FOR DURATION OF STAY.
== END 2020-09-11 02:09 | disposition home or self-care (01) ==
LOC: ED 09-11 00:19
DX: R06.00 Dyspnea, unspecified (principal); R94.31 Abnormal electrocardiogram [ECG] [EKG]; I10 Essential (primary) hypertension; E11.9 Type 2 diabetes mellitus without complications; I48.91 Unspecified atrial fibrillation; G43.909 Migraine, unspecified, not intractable, without status migrainosus; J44.9 Chronic obstructive pulmonary disease, unspecified
CPT/HCPCS: 36415; 71045; 80048; 82040; 83880; 84484; 85025; 93005; 94640; 99285

== ENCOUNTER 2020-09-22 02:18 | Emergency (ER) | payer MEDICARE, MEDICAID ==
[~2020-09-22] VITALS: Ht 165.1 cm; Wt 130.0 kg
[~2020-09-22 02:18] MED LIST changes: +IPRA3AMP30 PO; +METH4TAB2 PO; -MONT10TA11 PO; +MONT10TA96 PO; +ONDA4TAB7 PO; +PANT40TA3 PO; +SUCR1TAB33 PO
--- NOTE | 2020-09-22 02:35 | NUR ---
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 WCTM. PLACED ON SPO2/BP/ECG MONITORING AT THIS TIME
[2020-09-22] MEDS ORDERED: LORazepam 2 MG/ML, 1ML IVPush ONE (03:00)
[2020-09-22] MEDS ORDERED: LORazepam 2 MG/ML, 1ML ONE (03:07)
--- NOTE | 2020-09-22 03:12 | NUR ---
PT MEDICATED PER MAR, NAD, APPEARS SLIGHTL MORE COMFORTABLE AT THIS TIME. RAD AT BS, WCTM. WAITING FOR TEST RESULTS.
--- NOTE | 2020-09-22 03:48 | NUR ---
PT NAD, AFTER MEDICATION APPEARS CALMER AND RELAXED, RESPIRATIONS SLOWED, O2 SATS WNL, WCTM.
[2020-09-22 04:16] LABS: ALBUMIN 4.1 g/dL (3.4-5.0); ANION GAP 11 mmol/L (5-15); CALCIUM 8.5 mg/dL (8.5-10.1); CHLORIDE 117 mmol/L (98-107); CREATININE 0.82 mg/dL (0.55-1.02)
[2020-09-22] MEDS ORDERED: ACETAMINOPHEN 325 MG TABLET PO ONE (04:30)
[2020-09-22] MEDS ORDERED: ACETAMINOPHEN 325 MG TABLET ONE (04:31)
--- NOTE | 2020-09-22 04:46 | NUR ---
PT RESTING ON GURNEY, APPEARS COMFORTABLE, NAD, RESP RATE WNL, WAITING FOR LAB RESULTS, WCTM
[2020-09-22 04:47] VITALS: BP 132/66
[2020-09-22 05:02] LABS: BASOPHILS % (AUTO) 0 % (0-1); EOSINOPHILS % (AUTO) 0 % (1-7); LYMPHOCYTES % (AUTO) 4 % (22-44); MEAN CORPUSCULAR HEMOGLOBIN 28.4 pg (27.0-34.8); MEAN CORPUSCULAR HGB CONC 31.8 g/dL (32.4-35.8); MEAN PLATELET VOLUME 9.6 fL (7.4-10.4); MONOCYTES % (AUTO) 2 % (2-9); NEUTROPHILS % (AUTO) 95 % (42-75); PLATELET COUNT 110 x10^3/uL (130-400); RED BLOOD COUNT 4.84 x10^6/uL (3.82-5.3); RED CELL DISTRIBUTION WIDTH 15.8 % (9.6-15.2)
--- NOTE | 2020-09-22 05:28 | NUR ---
Patient given discharge instructions and they have confirmed that they understand the instructions. Patient ambulatory with steady gait. nad, all additional questions answered appropriately, provided taxi voucher home. no personal belongings left in room at time of dc.
[2020-09-22 06:08] LABS: MD SCAN
[2020-10-06] MEDS ORDERED: FLUO10CA13 PO (16:02)
[2020-10-06] MEDS ORDERED: ZIPR40CA3 PO (16:02)
[2020-10-06] MEDS ORDERED: SODI325T PO (16:02)
[2020-10-06] MEDS ORDERED: BUSP10TA PO (16:02)
[2020-10-06] MEDS ORDERED: DULA1.5P PO (16:02)
[2020-10-06] MEDS ORDERED: TRAZ50TA66 PO (16:02)
[2020-10-06] MEDS ORDERED: OXCA150T18 PO (16:02)
[2020-10-06] MEDS ORDERED: LEVO100T5 PO (16:02)
[2020-10-06] MEDS ORDERED: IPRA3AMP30 PO (16:02)
[2020-10-06] MEDS ORDERED: INSU100V8 SQ (16:02)
[2020-10-06] MEDS ORDERED: ACET500C28 PO (16:02)
[2020-10-06] MEDS ORDERED: ALBU90AE INH (16:02)
[2020-10-06] MEDS ORDERED: PREG300C PO (16:02)
[2020-10-06] MEDS ORDERED: MONT10TA96 PO (16:02)
[2020-10-06] MEDS ORDERED: HALO5TAB5 PO (16:02)
== END 2020-09-22 05:30 | disposition home or self-care (01) ==
LOC: ED 03:43
DX: J45.41 Moderate persistent asthma with (acute) exacerbation (principal); R06.02 Shortness of breath; R05 Cough; R50.9 Fever, unspecified; R09.81 Nasal congestion; R06.00 Dyspnea, unspecified; R07.89 Other chest pain; E11.9 Type 2 diabetes mellitus without complications; I10 Essential (primary) hypertension; G43.909 Migraine, unspecified, not intractable, without status migrainosus
CPT/HCPCS: 36415; 71045; 71275; 80048; 80053; 82040; 83880; 84484; 85025; 93005; 96374; 99284; 99285; J2060; Q9967

== ENCOUNTER 2020-09-22 10:18 | Emergency (ER) | payer MEDICARE, MEDICAID ==
[~2020-09-22] VITALS: Ht 165.1 cm; Wt 118.0 kg
[~2020-09-22 10:18] MED LIST changes: +MONT10TA11 PO; -MONT10TA96 PO
--- NOTE | 2020-09-22 10:30 | NUR ---
NIKO NDIAYE AT BEDSIDE TO EVAL PT
--- NOTE | 2020-09-22 10:44 | NUR ---
REPORT TO NATE FREEMAN
[2020-09-22] MEDS ORDERED: SODIUM CHLORIDE FLUSH 10ML SYR IVF ONE (11:00)
--- NOTE | 2020-09-22 11:04 | NUR ---
CT WAITING FOR IV ACCESS
[2020-09-22 11:06] LABS: BASOPHILS % (AUTO) 0 % (0-1); EOSINOPHILS % (AUTO) 0 % (1-7); LYMPHOCYTES % (AUTO) 3 % (22-44); MEAN CORPUSCULAR HEMOGLOBIN 28.4 pg (27.0-34.8); MEAN CORPUSCULAR HGB CONC 32.2 g/dL (32.4-35.8); MEAN PLATELET VOLUME 9.7 fL (7.4-10.4); MONOCYTES % (AUTO) 2 % (2-9); NEUTROPHILS % (AUTO) 95 % (42-75); PLATELET COUNT 147 x10^3/uL (130-400); RED BLOOD COUNT 4.77 x10^6/uL (3.82-5.3); RED CELL DISTRIBUTION WIDTH 15.9 % (9.6-15.2)
[2020-09-22 11:08] LABS: ALANINE AMINOTRANSFERASE 42 U/L (12-78); ALBUMIN 3.9 g/dL (3.4-5.0); ANION GAP 11 mmol/L (5-15); CALCIUM 8.9 mg/dL (8.5-10.1); CHLORIDE 119 mmol/L (98-107); CREATININE 1.06 mg/dL (0.55-1.02)
[2020-09-22 11:12] LABS: ALKALINE PHOSPHATASE 68 U/L (45-117); BILIRUBIN,TOTAL 0.3 mg/dL (0.2-1.0); MD NO; TOTAL PROTEIN 6.8 g/dL (6.4-8.2); TROPONIN I < 0.015 ng/mL (0.000-0.045)
--- NOTE | 2020-09-22 11:36 | NUR ---
PT IN CT.
--- NOTE | 2020-09-22 11:39 | NUR ---
IV DOESNT WORK FOR CTA-PAINFUL
--- NOTE | 2020-09-22 11:51 | NUR ---
PT BACK FROM CT, REPORTING PAIN W/ FLUSHING FROM IV SITE. WILL DC AND ATTEMPT ANOTHER LINE.
--- NOTE | 2020-09-22 12:23 | NUR ---
PT IN CT.
[2020-09-22] MEDS ORDERED: OMNIPAQUE 350 MG/ML, 100ML BOTTLE ONE (12:36)
[2020-09-22 13:15] VITALS: BP 122/71
--- NOTE | 2020-09-22 13:40 | NUR ---
Patient given discharge instructions and they have confirmed that they understand the instructions. Patient ambulatory with steady gait, provided w/ taxi voucher per pt request.
== END 2020-09-22 13:42 | disposition home or self-care (01) ==
LOC: ED 12:15
DX: R06.00 Dyspnea, unspecified (principal); E11.65 Type 2 diabetes mellitus with hyperglycemia; R07.89 Other chest pain; R11.2 Nausea with vomiting, unspecified; R55 Syncope and collapse; I10 Essential (primary) hypertension; R00.0 Tachycardia, unspecified; J45.909 Unspecified asthma, uncomplicated
CPT/HCPCS: 36415; 71275; 80053; 83880; 84484; 85025; 93005; 99285; Q9967

== ENCOUNTER 2021-03-16 16:48 | Inpatient (IN) | payer MEDICARE, MEDICAID ==
[~2021-03-16] VITALS: Ht 165.1 cm; Wt 106.5 kg
[~2021-03-16 16:48] MED LIST changes: +BACL-19 PO; -CYCL-259 PO; +CYCL10TA2 PO; +DOXY-162 PO; +DULA3PEN SC; +FERR-51 PO; +FLUT12AE2 INH; +FLUT1BLS INH; -FOLI0.8T2 PO; +FOLI0.8T5 PO; +HALO5TAB5 PO; +IVAB7.5T PO; +MELA10TA PO; +METH-640 PO; -METH750T2 PO; +METO10TA2 PO; +METO25TA2 PO; +METO25TA91 PO; +MIRA50TA PO; -MONT10TA11 PO; +MONT10TA17 PO; +MYCO500T PO; +OXCA300T3 PO; +POTA20PA25 PO; +POTA20TA89 PO
[2021-03-16] MEDS ORDERED: ALBUTEROL/IPRATROPIUM 2.5MG/0.5MG, 3 ML NPPB ONE (17:00)
[2021-03-16] MEDS ORDERED: ALBUTEROL/IPRATROPIUM 2.5MG/0.5MG, 3 ML ONE ×2 (17:04→17:26)
--- NOTE | 2021-03-16 17:08 | NUR ---
MEDS ADMIN PER JAN. DONATIONS ATTENDANT AND XRAY AT BEDSIDE.
--- NOTE | 2021-03-16 17:22 | NUR ---
PT CONTINUES TO WORK TO BREATHE AFTER DU[place]B TX. OXYGEN 100% RA. RT CALLED FOR ASSESSMENT. ERPA UPDATED.
[2021-03-16 17:23] LABS: BASOPHILS % (AUTO) 1 % (0-1); EOSINOPHILS % (AUTO) 3 % (1-7); LYMPHOCYTES % (AUTO) 37 % (22-44); MD NO; MEAN CORPUSCULAR HEMOGLOBIN 29.3 pg (27.0-34.8); MEAN CORPUSCULAR HGB CONC 33.6 g/dL (32.4-35.8); MEAN PLATELET VOLUME 9.8 fL (7.4-10.4); MONOCYTES % (AUTO) 9 % (2-9); NEUTROPHILS % (AUTO) 50 % (42-75); PLATELET COUNT 124 x10^3/uL (130-400); RED BLOOD COUNT 4.25 x10^6/uL (3.82-5.3); RED CELL DISTRIBUTION WIDTH 16.7 % (9.6-15.2)
[2021-03-16] MEDS ORDERED: DIPHENHYDRAMINE 50 MG CAPSULE ONE (17:26)
--- NOTE | 2021-03-16 17:29 | NUR ---
RT AT BEDSIDE FOR ASSESSMENT.
[2021-03-16] MEDS ORDERED: DIPHENHYDRAMINE 25 MG CAPSULE PO ONE (17:30)
[2021-03-16] MEDS ORDERED: PLEASE ENTER HEIGHT AND WEIGHT MC SCH (17:30)
[2021-03-16 17:34] LABS: ALBUMIN 3.4 g/dL (3.4-5.0); ANION GAP 10 mmol/L (5-15); CALCIUM 8.4 mg/dL (8.5-10.1); CHLORIDE 120 mmol/L (98-107)
[2021-03-16] MEDS ORDERED: ALBUTEROL SULFATE 2.5 MG/3 ML ONE (17:35)
[2021-03-16] MEDS ORDERED: ALBUTEROL SULFATE 2.5MG/0.5ML ONE (17:35)
[2021-03-16] MEDS ORDERED: methylPREDNISolone SOD SUCC 125 MG/2 ML IV ONE (18:00)
[2021-03-16] MEDS ORDERED: MAGNESIUM SULFATE PMX 2GM/50ML 50 ML IV ONE (18:00)
[2021-03-16] MEDS ORDERED: methylPREDNISolone SOD SUCC 125 MG/2 ML ONE (18:09)
[2021-03-16] MEDS ORDERED: MAGNESIUM SULFATE PMX 2GM/50ML 50 ML ONE (18:33)
--- NOTE | 2021-03-16 18:41 | NUR ---
IN ROOM TO ASSESS PT. PT RESPIRATIONS INCREASED. PT STATES SHE IS TIRING OUT. MD MADE AWARE AND BEDSIDE TO ASSESS PT. MEDICATION STARTED PER ORDER. PT FOUND TO BE IN [place] ON CLINICAL DOCUMENTATION MANAGER. TECH AT BEDSIDE FOR EKG
--- NOTE | 2021-03-16 19:12 | NUR ---
REPORT GIVEN TO PACO FREEMAN. PT TRANSFERRED TO TRAUMA 3. RT AT BEDSIDE FOR TRANSFER.
[2021-03-16] MEDS ORDERED: SODIUM CHLORIDE FLUSH 10ML SYR IVF PRN (19:30)
[2021-03-16] MEDS ORDERED: NS + 40MEQ KCL 0 ML IV ONE (19:42)
[2021-03-16] MEDS ORDERED: POTASSIUM CHLORIDE 20 MEQ TAB.ER.PRT PO ONE (20:00)
[2021-03-16] MEDS ORDERED: POTASSIUM CHLORIDE 40 MEQ in SODIUM CHLORIDE 0.9% 500 ML IV ONE (20:00)
[2021-03-16] MEDS ORDERED: ZIPRASIDONE 40MG CAPSULE PO ONE (21:00)
[2021-03-16] MEDS ORDERED: METOPROLOL SUCCINATE 25 MG TAB.ER.24H PO ONE (21:00)
[2021-03-16] MEDS ORDERED: BUSPIRONE 10 MG TABLET PO ONE (21:00)
[2021-03-16] MEDS ORDERED: POTASSIUM CHLORIDE 20 MEQ PACKET PO SCH (21:00)
[2021-03-16] MEDS ORDERED: ACETAMINOPHEN 325 MG TABLET PO PRN (21:30)
[2021-03-16] MEDS ORDERED: BISACODYL 10 MG SUPP PR PRN (21:30)
[2021-03-16] MEDS ORDERED: ONDANSETRON ODT 4 MG PO PRN (21:30)
[2021-03-16] MEDS ORDERED: OXYcodone IR 5MG TABLET PO PRN (21:30)
[2021-03-16] MEDS ORDERED: DOCUSATE 100 MG CAPSULE PO PRN (21:30)
[2021-03-16] MEDS ORDERED: ONDANSETRON 2MG/ML, 2ML IVPush PRN (21:30)
[2021-03-16] MEDS ORDERED: hydrALAzine 20 MG/ML, 1ML IVPush PRN (21:30)
[2021-03-16] MEDS ORDERED: POLYETHYLENE GLYCOL 17 GM PACKET PO PRN (21:30)
[2021-03-16] MEDS ORDERED: PROMETHAZINE 25 MG/ML, 1ML IM PRN (21:30)
[2021-03-16 22:15] VITALS: BP 111/61
[2021-03-16] MEDS ORDERED: ALBUTEROL/IPRATROPIUM 2.5MG/0.5MG, 3 ML HHN SCH (22:30)
[2021-03-16 22:38] VITALS: BP 111/61
[2021-03-16] MEDS: TRAZODONE 100MG TABLET PO SCH (22:52)
[2021-03-16] MEDS: PREGABALIN 150 MG CAPSULE PO SCH (22:52)
[2021-03-16] MEDS: ENOXAPARIN 40 MG/0.4 ML SQ SCH (22:52)
[2021-03-16] MEDS: BUSPIRONE 10 MG TABLET PO SCH (22:52)
[2021-03-16] MEDS: IVABRADINE HCL 7.5 MG PO SCH (22:53)
[2021-03-16 23:16] LABS: MICROSCOPIC AUTO
[2021-03-17 02:02] VITALS: BP 120/80
[2021-03-17] MEDS: ALBUTEROL/IPRATROPIUM 2.5MG/0.5MG, 3 ML HHN SCH ×4 (02:17→19:04)
[2021-03-17] MEDS: LEVOTHYROXINE 100 MCG TABLET PO SCH (05:40)
[2021-03-17 06:01] LABS: BASOPHILS % (AUTO) 0 % (0-1); EOSINOPHILS % (AUTO) 0 % (1-7); LYMPHOCYTES % (AUTO) 7 % (22-44); MEAN CORPUSCULAR HEMOGLOBIN 29.2 pg (27.0-34.8); MEAN CORPUSCULAR HGB CONC 32.6 g/dL (32.4-35.8); MEAN PLATELET VOLUME 10.5 fL (7.4-10.4); MONOCYTES % (AUTO) 1 % (2-9); NEUTROPHILS % (AUTO) 92 % (42-75); PLATELET COUNT 160 x10^3/uL (130-400); RED CELL DISTRIBUTION WIDTH 16.8 % (9.6-15.2)
[2021-03-17 06:02] LABS: MD NO
[2021-03-17 06:16] LABS: CHLORIDE 118 mmol/L (98-107)
[2021-03-17 06:35] LABS: ALANINE AMINOTRANSFERASE 23 U/L (12-78); ALBUMIN 3.3 g/dL (3.4-5.0); ALKALINE PHOSPHATASE 80 U/L (45-117); ANION GAP 12 mmol/L (5-15); BILIRUBIN,TOTAL 0.2 mg/dL (0.2-1.0); CALCIUM 8.3 mg/dL (8.5-10.1); CHOL/HDL RATIO 3.1; CHOLESTEROL, TOTAL 165 mg/dL (140-239); CREATININE 0.81 mg/dL (0.55-1.02); HDL CHOL % 33 % (28-40); HDL CHOLESTEROL (DIRECT) 54 mg/dL (40-60); LDL CHOLESTEROL,CALCULATED 92 mg/dL (54-169); LDL/HDL RATIO 1.7 (0.5-3.0); TOTAL PROTEIN 5.7 g/dL (6.4-8.2); TRIGLYCERIDES 96 mg/dL (50-200); VLDL CHOLESTEROL 19 mg/dL (0-25)
[2021-03-17] MEDS ORDERED: INSULIN LISPRO 100 UNITS/ML, PEN SQ-INSULIN SCH (07:00)
[2021-03-17] MEDS: BUDESONIDE 0.5 MG/2 ML INHA INH SCH ×2 (07:17→19:04)
[2021-03-17 07:28] VITALS: BP 118/71
[2021-03-17] MEDS ORDERED: ZIPRASIDONE 20MG CAPSULE ONE (08:17)
[2021-03-17] MEDS: OXCARBAZEPINE 150 MG TABLET PO SCH (08:23)
[2021-03-17] MEDS: FERROUS SULFATE 325 MG TABLET PO SCH (08:24)
[2021-03-17] MEDS: FLUOXETINE HCL 20 MG CAPSULE PO SCH (08:24)
[2021-03-17] MEDS: PREGABALIN 150 MG CAPSULE PO SCH ×2 (08:24→22:04)
[2021-03-17] MEDS: BUSPIRONE 10 MG TABLET PO SCH ×3 (08:24→22:04)
[2021-03-17] MEDS: ZIPRASIDONE 40MG CAPSULE PO SCH ×2 (08:25→22:04)
[2021-03-17] MEDS: IVABRADINE HCL 7.5 MG PO SCH ×2 (08:25→22:05)
[2021-03-17] MEDS ORDERED: AcetaZOLAMIDE ER 500 MG CAPSULE PO ONE (09:00)
[2021-03-17] MEDS ORDERED: MONTELUKAST 10 MG TABLET PO SCH (09:00)
[2021-03-17] MEDS ORDERED: Mirabegron** (Myrbetriq**) 50 MG) PO SCH ×2 (09:00→11:59)
[2021-03-17] MEDS ORDERED: FLUTICASONE/VILANTEROL 200-25MCG/INH INH SCH (09:00)
[2021-03-17] MEDS: INSULIN LISPRO 100 UNITS/ML, PEN SQ-INSULIN SCH ×4 (09:46→21:00)
[2021-03-17 12:25] VITALS: BP 101/66
[2021-03-17] MEDS ORDERED: LORazepam 1MG TABLET PO ONE (16:00)
[2021-03-17] MEDS ORDERED: CEFTRIAXONE 1,000 MG in DEXTROSE 5% 50 ML IVPB SCH (17:00)
[2021-03-17 20:45] VITALS: BP 110/69
[2021-03-17] MEDS ORDERED: METOPROLOL SUCCINATE 25 MG TAB.ER.24H PO SCH (21:00)
[2021-03-17] MEDS ORDERED: CEPHALEXIN 500 MG CAPSULE PO SCH (21:00)
[2021-03-17] MEDS: TRAZODONE 100MG TABLET PO SCH (22:04)
[2021-03-17] MEDS: ENOXAPARIN 40 MG/0.4 ML SQ SCH (22:05)
[2021-03-18 00:57] VITALS: BP 101/68
[2021-03-18] MEDS: ALBUTEROL/IPRATROPIUM 2.5MG/0.5MG, 3 ML HHN SCH ×2 (02:30→09:00)
[2021-03-18] MEDS: LEVOTHYROXINE 100 MCG TABLET PO SCH (06:03)
[2021-03-18 06:25] VITALS: BP 126/80
[2021-03-18] MEDS: INSULIN LISPRO 100 UNITS/ML, PEN SQ-INSULIN SCH ×3 (07:00→16:00)
[2021-03-18] MEDS: IVABRADINE HCL 7.5 MG PO SCH (09:00)
[2021-03-18] MEDS: BUDESONIDE 0.5 MG/2 ML INHA INH SCH (09:00)
[2021-03-18] MEDS: FLUOXETINE HCL 20 MG CAPSULE PO SCH (09:24)
[2021-03-18] MEDS: PREGABALIN 150 MG CAPSULE PO SCH (09:25)
[2021-03-18] MEDS: ZIPRASIDONE 40MG CAPSULE PO SCH (09:25)
[2021-03-18] MEDS: BUSPIRONE 10 MG TABLET PO SCH ×2 (09:26→16:00)
[2021-03-18] MEDS: FERROUS SULFATE 325 MG TABLET PO SCH (09:26)
[2021-03-18] MEDS: OXCARBAZEPINE 150 MG TABLET PO SCH (09:26)
[2021-03-18 11:59] VITALS: BP 107/64
[2021-03-18] MEDS ORDERED: ALBUTEROL/IPRATROPIUM 2.5MG/0.5MG, 3 ML NPPB SCH (21:00)
== END 2021-03-18 17:30 | disposition home or self-care (01) | DRG 189 ==
LOC: ED 17:37 → EDIP 19:14 → 4WST 22:33
PROVIDERS: ADMIT Internal Medicine; ATTEND Hospitalist
DX: J96.01 Acute respiratory failure with hypoxia (principal); G82.50 Quadriplegia, unspecified; N39.0 Urinary tract infection, site not specified; H46.9 Unspecified optic neuritis; E03.9 Hypothyroidism, unspecified; E11.9 Type 2 diabetes mellitus without complications; E28.2 Polycystic ovarian syndrome; E66.01 Morbid (severe) obesity due to excess calories; Z68.39 Body mass index [BMI] 39.0-39.9, adult; E86.0 Dehydration; E87.6 Hypokalemia; F25.0 Schizoaffective disorder, bipolar type; F41.0 Panic disorder [episodic paroxysmal anxiety]; F43.10 Post-traumatic stress disorder, unspecified; G43.909 Migraine, unspecified, not intractable, without status migrainosus; I10 Essential (primary) hypertension; Z88.2 Allergy status to sulfonamides; Z88.8 Allergy status to other drugs, medicaments and biological substances; Z91.048 Other nonmedicinal substance allergy status; K21.9 Gastro-esophageal reflux disease without esophagitis; J44.9 Chronic obstructive pulmonary disease, unspecified; I48.91 Unspecified atrial fibrillation; F44.81 Dissociative identity disorder; F60.3 Borderline personality disorder; K52.9 Noninfective gastroenteritis and colitis, unspecified; Z82.49 Family history of ischemic heart disease and other diseases of the circulatory system; Z83.3 Family history of diabetes mellitus; Z90.49 Acquired absence of other specified parts of digestive tract
CPT/HCPCS: 36415; 36600; 71045; 80048; 80053; 80061; 81001; 82040; 82803; 82962; 83036; 83735; 84100; 84443; 84703; 85025; 85379; 87086; 93005; 94640; 96374; 96375; G0378; J0696; J1650; J3480; J7626; J1815; J2930; J3475; J7040; J7512; J7517; Q0163

== ENCOUNTER 2021-03-19 21:31 | Emergency (ER) | payer MEDICARE, MEDICAID ==
[~2021-03-19] VITALS: Ht 165.1 cm; Wt 113.1 kg
[2021-03-19 21:34] VITALS: BP 131/75
--- NOTE | 2021-03-19 22:16 | NUR ---
PT RESTING IN [facility] IN LOBBY. ON HER CELL PHONE. DRE
--- NOTE | 2021-03-20 01:23 | NUR ---
RESISTRATION STATES PT WALKED OUT AND DID NOT RETURN
--- NOTE | 2021-03-20 01:25 | NUR ---
PATIENT CALLED NO ANSWER. TOLD BY REGISTRATION "SHE IS LONG GONE". WILL CALL PATIENT AGAIN.
== END 2021-03-20 01:37 | disposition left against medical advice (07) ==
LOC: ED 22:32
DX: R06.02 Shortness of breath (principal); Z53.21 Procedure and treatment not carried out due to patient leaving prior to being seen by health care provider
CPT/HCPCS: 71046; 93005